=== PATIENT | male | born 1965 | race Caucasian/White ===

== ENCOUNTER 2016-07-01 16:23 | Inpatient (IN) | payer BC ==
[~2016-07-01] VITALS: Ht 180.3 cm; Wt 92.4 kg
[~2016-07-01 16:23] MED LIST: ALLO300T2 PO; ATEN-100 PO; ATOR20TA PO; FLUO20TA20 PO; HYDR-3580 PO; SOMA350T PO
[2016-07-01] MEDS ORDERED: CARI350T20 PO (16:48)
[2016-07-01] MEDS ORDERED: HYDR-3583 PO (16:48)
[2016-07-01 17:01] VITALS: BP 162/88; PULSE 89; RESP 16; TEMP 98.3; O2SAT 97
--- NOTE | 2016-07-01 17:35 | PD ---
HPI Chief Complaint: Pain: Acute or Chronic Time Seen by Provider: 17:32 Travel History International Travel<30 days: No Contact w/Intl Traveler<30days: No Traveled to known affect area: No History of Present Illness HPI 50-year-old male presents to the emergency department for evaluation of acute exacerbation of chronic low back pain. Patient states he has been having low back pain for 3 weeks. He states he saw Dr. Micky Ayala 3 weeks ago and he has surgery scheduled for , 2 days from now as long as he get his preop completed. However, he states for the past 2 days, he has been unable to move or get out of bed due to the severe pain. He is taking Lortab and Soma without relief. He states that he is urinating in bed. He is trying to use a urinal, but is urinating on himself. He states he has not had a bowel movement in 2 days. Patient does live alone. His sister is at bedside is concerned for him. He denies any fevers. Patient denies any saddle anesthesias. He states that he has to disc better compressing on the spinal cord. He is unsure what surgery he is having done. He also reports a history of gout. He takes no other medications. PFSH Past Medical History Arthritis: Yes Cancer: No Cardiovascular Problems: Yes (OR, STENTS X 3) High Cholesterol: Yes Chest Pain: Yes Diabetes: No Diminished Hearing: No Endocrine: No GERD: Yes Gout: Yes Genitourinary: No Hepatitis: No Hiatal Hernia: No Hypertension: Yes Immune Disorder: No Implanted Vascular Access Dvce: Yes Musculoskeletal: Yes (BACK, NECK, ARTHRITIS, OSTEOARTHRITIS RIGHT HIP) Neurologic: Yes (NUMBNESS & TINGLING TOP OF HEAD TO BASE OF CERVICAL SPINE ) Psychiatric: Yes (DEPRESSION,ANXIETY,ANGER) Reproductive: No Respiratory: Yes (SOB) Myocardial Infarction: Yes Thyroid Disease: No Past Surgical History Abdominal Surgery: No AICD: No Body Medical Devices: PLATE IN NECK, LEFT KNEE Cardiac Surgery: Yes (CARDIAC STENT X 3) Ear Surgery: No Endocrine Surgery: No Eye Surgery: No Genitourinary Surgery: No Joint Replacement: Yes (LEFT KNEE) Neurologic Surgery: Yes (CERVICAL SPINE ) Oral Surgery: No Pacemaker: No Thoracic Surgery: No Tonsillectomy: Yes Other Surgery: Yes Social History Alcohol Use: No Tobacco Use: No Substance Use: No Allergies-Medications (Allergen,Severity, Reaction): Coded Allergies: No Known Allergies (Unverified , 07/01/16) Reported Meds & Prescriptions Reported Meds & Active Scripts Active Reported Carisoprodol 350 Mg Tab 350 Mg PO QID PRN Hydrocodone-Acetaminophen 10-325 mg Tab 1 Tab PO Q6H PRN Review of Systems Except as stated in HPI: all other systems reviewed are Neg Physical Exam Narrative GENERAL: Well-nourished, well-developed male patient, afebrile. Patient smells of urine. SKIN: Focused skin assessment warm/dry. HEAD: Normocephalic. Atraumatic. EYES: No scleral icterus. No injection or drainage. NECK: Supple, trachea midline. No JVD or lymphadenopathy. CARDIOVASCULAR: Regular rate and rhythm without murmurs, gallops, or rubs. RESPIRATORY: Breath sounds equal bilaterally. No accessory muscle use. Lungs sounds are clear to auscultation. GASTROINTESTINAL: Abdomen soft, non-tender, nondistended. MUSCULOSKELETAL: No cyanosis, or edema. Patient has 5/5 bilateral lateral upper and lower extremity strength. BACK: No obvious deformity. No CVA tenderness. Patient has pain over midline lumbar spine. Data Data Last Documented VS Vital Signs Date Time Temp Pulse Resp B/P Pulse Ox O2 Delivery O2 Flow Rate FiO2 07/01/16 18:48 18 172/88 99 Room Air 07/01/16 17:01 98.3 89 Orders Creatine Kinase (Cpk) (07/01/16 17:28) Iv Access Insert/Monitor (07/01/16 17:28) Complete Blood Count With Diff (07/01/16 17:28) Comprehensive Metabolic Panel (07/01/16 17:28) Ondansetron Inj (Zofran Inj) (07/01/16 17:45) Morphine Inj (Morphine Inj) (07/01/16 17:45) Urinalysis - C+S If Indicated (07/01/16 18:10) Mri T Spine W/O Contrast (07/01/16 ) Mri L Spine W/O Contrast (07/01/16 ) Sodium Chlor 0.9% 1000 Ml Inj (Ns 1000 M (07/01/16 18:30) Labs Laboratory Tests Test 07/01/16 07/01/16 17:55 18:45 White Blood Count 16.0 TH/MM3 Red Blood Count 5.97 MIL/MM3 Hemoglobin 18.2 GM/DL Hematocrit 55.4 % Mean Corpuscular Volume 92.8 FL Mean Corpuscular Hemoglobin 30.4 PG Mean Corpuscular Hemoglobin 32.8 % Concent Red Cell Distribution Width 14.3 % Platelet Count 127 TH/MM3 Mean Platelet Volume 9.9 FL Neutrophils (%) (Auto) 77.4 % Lymphocytes (%) (Auto) 14.6 % Monocytes (%) (Auto) 7.7 % Eosinophils (%) (Auto) 0.1 % Basophils (%) (Auto) 0.2 % Neutrophils # (Auto) 12.4 TH/MM3 Lymphocytes # (Auto) 2.3 TH/MM3 Monocytes # (Auto) 1.2 TH/MM3 Eosinophils # (Auto) 0.0 TH/MM3 Basophils # (Auto) 0.0 TH/MM3 CBC Comment DIFF FINAL Differential Comment Sodium Level 137 MEQ/L Potassium Level 3.9 MEQ/L Chloride Level 101 MEQ/L Carbon Dioxide Level 27.3 MEQ/L Anion Gap 9 MEQ/L Blood Urea Nitrogen 23 MG/DL Creatinine 1.17 MG/DL Estimat Glomerular Filtration 66 ML/MIN Rate Random Glucose 112 MG/DL Calcium Level 8.1 MG/DL Total Bilirubin 0.5 MG/DL Aspartate Amino Transf 21 U/L (AST/SGOT) Alanine Aminotransferase 55 U/L (ALT/SGPT) Alkaline Phosphatase 76 U/L Total Creatine Kinase 122 U/L Total Protein 6.3 GM/DL Albumin 3.2 GM/DL Urine Color YELLOW Urine Turbidity HAZY Urine pH 6.5 Urine Specific [place] 1.029 Urine Protein 30 mg/dL Urine Glucose (UA) NEG mg/dL Urine Ketones TRACE mg/dL Urine Occult Blood SMALL Urine Nitrite NEG Urine Bilirubin NEG Urine Urobilinogen LESS THAN 2.0 MG/DL Urine Leukocyte Esterase NEG Urine RBC 9 /hpf Urine WBC 4 /hpf Urine Amorphous Sediment RARE Urine Bacteria RARE /hpf Urine Mucus FEW /lpf Microscopic Urinalysis Comment CULT NOT INDICATED MDM Medical Decision Making Medical Screen Exam Complete: Yes Emergency Medical Condition: Yes Medical Record Reviewed: Yes Differential Diagnosis Intractable back pain versus acute exacerbation of chronic back pain versus herniated disc versus spinal cord compression Narrative Course 50-year-old male presents to the emergency department for evaluation of severe back pain that he states started 2 days ago and he has been unable to get out of bed. The patient does smell of urine. The patient states totally is had back pain for 3 weeks and is scheduled to have surgery in 2 days if he can have his preop done. However, he cannot get out of bed to even do the preop. I discussed the case with my attending physician, Dr. Ballard. I will try to contact Dr. Micky Ayala. IV access obtained. CBC, CMP, CK are ordered and pending. Patient is given morphine 4 mg IV and Zofran 4 mg IV for pain. 1808 - I spoke to Dr. Micky Ayala who states the patient has refused conservative care. He was also supposed to get epidural anesthesia injections which he canceled and did not show up for. Dr. Ayala is unsure if surgery is even option at this point due to noncompliance. Dr. Ayala would labs and UA to be completed and MRI without contrast to be completed. Then he would like to be called back. CBC shows leukocytosis 16.0, hemoconcentration with hemoglobin/hematocrit of 18.2, 55.4. Platelets are decreased at 127. CMP shows no acute abnormality. CK is 122. UA shows no acute infection. MRI of the thoracic spine without contrast and MRI of the lumbar spine without contrast are pending. Dr. Ballard will follow up on results and contact Dr. Ayala with results. Christina Duke Jul 01, 2016 17:35
[2016-07-01] MEDS ORDERED: ONDANSETRON HCL 4 MG/2 ML VIAL IV PUSH ONE (17:45)
[2016-07-01] MEDS ORDERED: MORPHINE SULFATE 4 MG/ML INJ IV PUSH ONE (17:45)
[2016-07-01 18:14] LABS: AUTOMATED NEUTROPHIL # 12.4 TH/MM3 (1.8-7.7); BASOPHIL % 0.2 % (0.0-2.0); EOSINOPHIL % 0.1 % (0.0-4.0); HEMATOCRIT 55.4 % (39.0-51.0); HEMO FLAGS DIFF FINAL; LYMPH % 14.6 % (9.0-44.0); LYMPHOCYTE # 2.3 TH/MM3 (1.0-4.8); MEAN CELL VOLUME 92.8 FL (80.0-100.0); MEAN CORPUSCULAR HEMOGLOBIN 30.4 PG (27.0-34.0); MEAN CORPUSCULAR HGB CONC 32.8 % (32.0-36.0); MONO % 7.7 % (0.0-8.0); NEUT % 77.4 % (16.0-70.0); PLATELET COUNT 127 TH/MM3 (150-450); RED BLOOD COUNT 5.97 MIL/MM3 (4.50-5.90); RED CELL DISTRIBUTION WIDTH 14.3 % (11.6-17.2)
[2016-07-01] MEDS ORDERED: SODIUM CHLOR 0.9% 1000 ML INJ 1,000 ML IV ONE (18:30)
[2016-07-01 18:36] LABS: ALT (GPT) 55 U/L (12-78); ANION GAP 9 MEQ/L (5-15); AST (GOT) 21 U/L (15-37); BICARBONATE 27.3 MEQ/L (21.0-32.0); BLOOD UREA NITROGEN 23 MG/DL (7-18); CHLORIDE 101 MEQ/L (98-107); GLOMERULAR FILTRATION RATE 66 ML/MIN (>89); POTASSIUM 3.9 MEQ/L (3.5-5.1); SODIUM (NA) 137 MEQ/L (136-145)
[2016-07-01 18:38] LABS: ALKALINE PHOSPHATASE 76 U/L (45-117); CREATINE KINASE 122 U/L (39-308); TOTAL BILIRUBIN ADULT 0.5 MG/DL (0.2-1.0)
[2016-07-01 18:48] VITALS: BP 172/88; RESP 18; O2SAT 99
[2016-07-01 19:02] LABS: BACTERIA, URINE RARE /hpf; BLOOD, URINE SMALL (NEG); COMMENT (UR) CULT NOT INDICATED; CULTURE IF INDICATED CULT NOT INDICATED; GLUCOSE,URINE NEG (NEG); KETONE, URINE TRACE mg/dL (NEG); MUCUS URINE FEW /lpf (OCC); NITRITE,URINE NEG (NEG); PH, URINE 6.5 (5.0-8.5); URINE COLOR YELLOW (YELLW/STRAW)
[2016-07-01] MEDS ORDERED: HYDROmorphone HCL PF 1 MG/ML VIAL IV PUSH ONE ×2 (21:45→23:30)
[2016-07-01 22:25] VITALS: BP 159/101; PULSE 78; RESP 18; O2SAT 100
--- NOTE | 2016-07-01 23:02 | RADRPT ---
EXAM DATE/TIME: 07/01/2016 22:08 [facility] COMPARISON: No previous studies available for comparison. INDICATIONS : Pain. MEDICAL HISTORY : Hypertension. SURGICAL HISTORY : Fusion, cervical. ENCOUNTER: Initial ACUITY: 2 day PAIN SCORE: 5/10 LOCATION: back TECHNIQUE: Multiplanar multisequence MRI of the thoracic spine was performed. FINDINGS: VERTEBRA: Normal vertebral body height. Mild discogenic edema is noted in the endplates at C5-6 and C6-7 levels . DISCS: There are degenerative disc changes with desiccation and mild spurring. Anterior extradural defects a re noted on the sagittal images at T5-6, T6-7, T9-10 and T10-11 levels as well as T11-T12. ALIGNMENT: Normal. CORD: Normal position and configuration. T1-T2: The thecal sac has a normal diameter. No evidence of disc bulge or protrusion. T2-T3: The thecal sac has a normal diameter. No evidence of disc bulge or protrusion. T3-T4: The thecal sac has a normal diameter. No evidence of disc bulge or protrusion. T4-T5: The thecal sac has a normal diameter. No evidence of disc bulge or protrusion. T5-T6: Annular disc bulge with mild mass effect on the anterior thecal sac. This meets the cord with no defi nite mass effect. T6-T7: There is a moderate size right parasagittal protrusion with mass effect on the right side of the cord and no definite abnormal signal. The protrusion measures 8 mm across the base and a 3-[address] AP diameter. T7-T8: There is a mild annular disc bulge with no mass effect upon the cord. T8-T9: There is a mild disc bulge with no mass effect upon the cord. T9-T10: Broad-based moderate protrusion with flattening of the anterior cord no abnormal signal. T10-T11: Broad-based protrusion with no mass effect on the cord. T11-T12: Small right parasagittal protrusion with no mass effect on the cord. T12-L1: The thecal sac has a normal diameter. No evidence of disc bulge or protrusion. CONCLUSION: 1. Moderate-sized broad-based protrusion at the T9 to 10 level with flattening of the anterior cord. 2. Moderate size right parasagittal protrusion at the T6-7 level with mass effect on the right side o f the cord. 3. Mild broad-based protrusion at the T10-11 level with no mass effect upon the cord. 4. Small right parasagittal protrusion at the T11-12 level with no mass effect upon the cord. Hans Moeller MD on July 01, 2016 at 22:55 Board Certified Radiologist. This report was verified electronically.
--- NOTE | 2016-07-01 23:05 | RADRPT ---
EXAM DATE/TIME: 07/01/2016 22:08 [facility] COMPARISON: No previous studies available for comparison. INDICATIONS : Lower back pain. MEDICAL HISTORY : Hypertension. SURGICAL HISTORY : Fusion, cervical. Hip. ENCOUNTER: Initial ACUITY: 2 day PAIN SCORE: 5/10 LOCATION: back TECHNIQUE: Multiplanar multisequence MRI of the lumbar spine was performed without contrast. FINDINGS: The most caudal appearing lumbar vertebra is numbered as L5. VERTEBRAE: There is an old fracture deformity of the L2 vertebral body with invagination of the superior endplat e and no marrow edema. The other vertebral bodies are preserved in height. There is discogenic edema in the endplates at the L4-5 level. DISCS: Egenerative disc changes present with disc space narrowing and desiccation. CONUS: Normal level and configuration. T12-L1: There is a mild annular disc bulge with mild flattening of the anterior thecal sac and no focal protr usion. L1-L2: There is a mild annular disc bulge with mild flattening of the anterior thecal sac and no focal protr usion. L2-L3: There is a mild annular disc bulge with mild flattening of the anterior thecal sac and no focal protr usion. L3-L4: There is a mild annular disc bulge with mild flattening of the anterior thecal sac and no focal protr usion. There is mild central canal stenosis. There are degenerative changes involving the facets. L4-L5: There is an annular disc bulge with flattening of the anterior thecal sac and narrowing of the neural foramina bilaterally. There are degenerative changes involving the facet joints with hypertrophy of ligamentum flavum and moderate to severe central canal stenosis. L5-S1: Annular disc bulge with mild flattening of the anterior thecal sac and no focal protrusion. There are degenerative changes involving facets. CONCLUSION: 1. Moderate to severe central canal stenosis at the L4-5 level secondary to disc bulge and degenerati ve change involving the facets. 2. Mild central canal stenosis at the L3-4 level secondary to disc bulge and degenerative change invo lving the facets. 3. Old fracture deformity of the L2 vertebral body with invagination of the superior endplate and no marrow edema. Hans Moeller MD on July 01, 2016 at 23:01 Board Certified Radiologist. This report was verified electronically.
--- NOTE | 2016-07-01 23:26 | PD ---
Data Data Last Documented VS Vital Signs Date Time Temp Pulse Resp B/P Pulse Ox O2 Delivery O2 Flow Rate FiO2 07/01/16 22:25 78 18 159/101 100 Room Air 07/01/16 17:01 98.3 Orders Creatine Kinase (Cpk) (07/01/16 17:28) Iv Access Insert/Monitor (07/01/16 17:28) Complete Blood Count With Diff (07/01/16 17:28) Comprehensive Metabolic Panel (07/01/16 17:28) Ondansetron Inj (Zofran Inj) (07/01/16 17:45) Morphine Inj (Morphine Inj) (07/01/16 17:45) Urinalysis - C+S If Indicated (07/01/16 18:10) Mri T Spine W/O Contrast (07/01/16 ) Mri L Spine W/O Contrast (07/01/16 ) Sodium Chlor 0.9% 1000 Ml Inj (Ns 1000 M (07/01/16 18:30) Hydromorphone Pf Inj (Dilaudid Pf Inj) (07/01/16 21:45) Blood Culture (07/01/16 22:28) Hydromorphone Pf Inj (Dilaudid Pf Inj) (07/01/16 23:30) Labs Laboratory Tests Test 07/01/16 07/01/16 17:55 18:45 White Blood Count 16.0 TH/MM3 Red Blood Count 5.97 MIL/MM3 Hemoglobin 18.2 GM/DL Hematocrit 55.4 % Mean Corpuscular Volume 92.8 FL Mean Corpuscular Hemoglobin 30.4 PG Mean Corpuscular Hemoglobin 32.8 % Concent Red Cell Distribution Width 14.3 % Platelet Count 127 TH/MM3 Mean Platelet Volume 9.9 FL Neutrophils (%) (Auto) 77.4 % Lymphocytes (%) (Auto) 14.6 % Monocytes (%) (Auto) 7.7 % Eosinophils (%) (Auto) 0.1 % Basophils (%) (Auto) 0.2 % Neutrophils # (Auto) 12.4 TH/MM3 Lymphocytes # (Auto) 2.3 TH/MM3 Monocytes # (Auto) 1.2 TH/MM3 Eosinophils # (Auto) 0.0 TH/MM3 Basophils # (Auto) 0.0 TH/MM3 CBC Comment DIFF FINAL Differential Comment Sodium Level 137 MEQ/L Potassium Level 3.9 MEQ/L Chloride Level 101 MEQ/L Carbon Dioxide Level 27.3 MEQ/L Anion Gap 9 MEQ/L Blood Urea Nitrogen 23 MG/DL Creatinine 1.17 MG/DL Estimat Glomerular Filtration 66 ML/MIN Rate Random Glucose 112 MG/DL Calcium Level 8.1 MG/DL Total Bilirubin 0.5 MG/DL Aspartate Amino Transf 21 U/L (AST/SGOT) Alanine Aminotransferase 55 U/L (ALT/SGPT) Alkaline Phosphatase 76 U/L Total Creatine Kinase 122 U/L Total Protein 6.3 GM/DL Albumin 3.2 GM/DL Urine Color YELLOW Urine Turbidity HAZY Urine pH 6.5 Urine Specific [place] 1.029 Urine Protein 30 mg/dL Urine Glucose (UA) NEG mg/dL Urine Ketones TRACE mg/dL Urine Occult Blood SMALL Urine Nitrite NEG Urine Bilirubin NEG Urine Urobilinogen LESS THAN 2.0 MG/DL Urine Leukocyte Esterase NEG Urine RBC 9 /hpf Urine WBC 4 /hpf Urine Amorphous Sediment RARE Urine Bacteria RARE /hpf Urine Mucus FEW /lpf Microscopic Urinalysis Comment CULT NOT INDICATED MDM Supervised Visit with [facility]: Yes Narrative Course I, Dr. Ballard, have reviewed the advance practice practitioner's documentation and am in agreement, met with the patient face to face, made the diagnosis, and the medical decision making was done by me. See her note for further details. Briefly this is a 50-year-old male who presents by ambulance for evaluation of severe mid and lower back pain. The patient has been followed by orthopedic surgeon Dr. Micky Ayala and is scheduled for surgery for this which is in 2 days. The patient has been in so much pain over the last 2 days that he has not been able to get out of bed. Pain is severe, constant, worse with movement. The patient had MRIs done as an outpatient on 05/26/16 which show severe spinal stenosis and bilateral foraminal narrowing at L4/L5, eccentric left disc protrusion at L5/S1, mild spinal stenosis at L3/L4, scattered degenerative changes are at the remainder of the lumbar spine. Patient denies urinary incontinence, however he has been urinating on himself because he has been unable to stand up to actually go to the restroom. No fevers or chills. No recent trauma. On physical exam the patient is very pleasant, however he is uncomfortable because of severe lower back pain. He has normal range of motion in all joints and extremities. There is significant midline lumbar spine and thoracic spine tenderness without step-offs. No saddle anesthesia. Great toe extension present bilaterally. Vital signs show heart rate 89, blood pressure 162 2/88, pulse ox 97% on room air, oral temp of 98.3F. CBC shows WBC 16, hemoglobin 18.2, hematocrit 55, platelets 127, neutrophils 77.4%. CMP is unremarkable. MRI T-spine: CONCLUSION: 1. Moderate-sized broad-based protrusion at the T9 to 10 level with flattening of the anterior cord. 2. Moderate size right parasagittal protrusion at the T6-7 level with mass effect on the right side of the cord. 3. Mild broad-based protrusion at the T10-11 level with no mass effect upon the cord. 4. Small right parasagittal protrusion at the T11-12 level with no mass effect upon the cord. MRI L-spine: CONCLUSION: 1. Moderate to severe central canal stenosis at the L4-5 level secondary to disc bulge and degenerative change involving the facets. 2. Mild central canal stenosis at the L3-4 level secondary to disc bulge and degenerative change involving the facets. 3. Old fracture deformity of the L2 vertebral body with invagination of the superior endplate and no marrow edema. I spoke with Dr. Micky Ayala prior to MRIs. Patient will be admitted to the medical service and he will see the patient in consultation in the morning. The patient was made aware of all findings and plan for admission. He is feeling a lot better after receiving IV Dilaudid. Case discussed with hospitalist Dr. Rogers who will admit the patient to her service. Diagnosis Primary Impression: Spinal stenosis Qualified Code: M48.00 - Spinal stenosis, unspecified spinal region Additional Impression: Severe back pain Admitting Information Admitting Physician Requests: Admit José Miguel Ballard MD Jul 01, 2016 23:26
[2016-07-01] MEDS ORDERED: NALOXONE HCL 0.4 MG/ML AMP IV PRN (23:45)
[2016-07-01] MEDS ORDERED: ONDANSETRON HCL 4 MG/2 ML VIAL IVP PRN (23:45)
[2016-07-01] MEDS ORDERED: HYDROmorphone HCL PF 1 MG/ML VIAL IV PUSH PRN (23:45)
[2016-07-01] MEDS ORDERED: SODIUM CHLORIDE 0.9% FLUSH 10 ML FLUSH IV FLUSH PRN (23:45)
[2016-07-02] VITALS (10 sets, daily range): BP systolic 150–184; BP diastolic 80–118; PULSE 70–94; RESP 14–22; TEMP 95–99.1; O2SAT 94–97
[2016-07-02] MEDS: CYCLOBENZAPRINE HCL 10 MG TAB PO PRN ×3 (00:46→20:52)
[2016-07-02] MEDS: SODIUM CHLOR 0.9% 1000 ML INJ 1,000 ML IV SCH ×3 (01:13→22:48)
--- NOTE | 2016-07-02 01:23 | HHI.HP ---
[facility] Service [facility] Primary Care Physician Jens Valentine MD Admission Diagnosis spinal stenosis, severe back pain Diagnoses: Travel History International Travel<30 Days: No Contact w/Intl Traveler <30 Da: No Traveled to Known Affected Are: No Past Family Social History Allergies: Coded Allergies: No Known Allergies (Unverified , 07/01/16) Physical Exam Vital Signs Vital Signs Date Time Temp Pulse Resp B/P Pulse Ox O2 Delivery O2 Flow Rate FiO2 07/02/16 00:42 18 07/01/16 22:25 78 18 159/101 100 Room Air 07/01/16 18:48 18 172/88 99 Room Air 07/01/16 18:47 18 07/01/16 17:01 98.3 89 16 162/88 97 Room Air Physical Exam GENERAL: This is a well-nourished, well-developed patient, in no apparent distress. SKIN: No rashes, ecchymoses or lesions. Cool and dry. HEAD: Atraumatic. Normocephalic. No temporal or scalp tenderness. EYES: Pupils equal round and reactive. Extraocular motions intact. No scleral icterus. No injection or drainage. ENT: Nose without bleeding, purulent drainage or septal hematoma. Throat without erythema, tonsillar hypertrophy or exudate. Uvula midline. Airway patent. NECK: Trachea midline. No JVD or lymphadenopathy. Supple, nontender, no meningeal signs. CARDIOVASCULAR: Regular rate and rhythm without murmurs, gallops, or rubs. RESPIRATORY: Clear to auscultation. Breath sounds equal bilaterally. No wheezes , rales, or rhonchi. GASTROINTESTINAL: Abdomen soft, non-tender, nondistended. No hepato-splenomegaly , or palpable masses. No guarding. MUSCULOSKELETAL: Extremities without clubbing, cyanosis, or edema. No joint tenderness, effusion, or edema noted. No calf tenderness. Negative Homans sign bilaterally. NEUROLOGICAL: Awake and alert. Cranial nerves II through XII intact. Motor and sensory grossly within normal limits. Five out of 5 muscle strength in all muscle groups. Normal speech. Laboratory Laboratory Tests Test 4/11/17 4/11/17 17:55 18:45 White Blood Count 16.0 Red Blood Count 5.97 Hemoglobin 18.2 Hematocrit 55.4 Mean Corpuscular Volume 92.8 Mean Corpuscular Hemoglobin 30.4 Mean Corpuscular Hemoglobin 32.8 Concent Red Cell Distribution Width 14.3 Platelet Count 127 Mean Platelet Volume 9.9 Neutrophils (%) (Auto) 77.4 Lymphocytes (%) (Auto) 14.6 Monocytes (%) (Auto) 7.7 Eosinophils (%) (Auto) 0.1 Basophils (%) (Auto) 0.2 Neutrophils # (Auto) 12.4 Lymphocytes # (Auto) 2.3 Monocytes # (Auto) 1.2 Eosinophils # (Auto) 0.0 Basophils # (Auto) 0.0 CBC Comment DIFF FINAL Differential Comment Sodium Level 137 Potassium Level 3.9 Chloride Level 101 Carbon Dioxide Level 27.3 Anion Gap 9 Blood Urea Nitrogen 23 Creatinine 1.17 Estimat Glomerular Filtration 66 Rate Random Glucose 112 Calcium Level 8.1 Total Bilirubin 0.5 Aspartate Amino Transf 21 (AST/SGOT) Alanine Aminotransferase 55 (ALT/SGPT) Alkaline Phosphatase 76 Total Creatine Kinase 122 Total Protein 6.3 Albumin 3.2 Urine Color YELLOW Urine Turbidity HAZY Urine pH 6.5 Urine Specific [place] 1.029 Urine Protein 30 Urine Glucose (UA) NEG Urine Ketones TRACE Urine Occult Blood SMALL Urine Nitrite NEG Urine Bilirubin NEG Urine Urobilinogen LESS THAN 2.0 Urine Leukocyte Esterase NEG Urine RBC 9 Urine WBC 4 Urine Amorphous Sediment RARE Urine Bacteria RARE Urine Mucus FEW Microscopic Urinalysis Comment CULT NOT INDICATED Date/Time Procedure Status Source Growth 07/01/16 23:05 Aerobic Blood Culture Received Blood Peripheral Pending 07/01/16 23:05 Anaerobic Blood Culture Received Blood Peripheral Pending Result Diagram: 07/01/16 1755 07/01/16 1755 Eduardo Rogers MD Jul 02, 2016 01:23
--- NOTE | 2016-07-02 01:29 | HHI.HP ---
HPI Service [facility] Primary Care Physician Jens Valentine MD Admission Diagnosis spinal stenosis, severe back pain Diagnoses: Chief Complaint: Low back pain, right lower extremity pain and numbness Travel History International Travel<30 Days: No Contact w/Intl Traveler <30 Da: No Traveled to Known Affected Are: No History of Present Illness History from patient, ER physician to medication, and review of medical records. Patient reported that he came to the hospital because he was having severe low back pain with severe right lower extremity numbness and pain which actually debilitate him from movement. He stated he was almost bedbound for the past 3 or 4 days. He states even when he got up to use bathroom, he was in excruciating pain that he thought and in his lab would have been the better choice. He reports he has lumbar stenosis for which he had MRIs and workup done as an outpatient with Dr. Micky Doherty. He was told he would need surgery and this was planned for . He states however in the past few days, the pain was suddenly worse. Denies any recent falls. Patient denies any recent fevers/nausea/vomiting/diarrhea. Denies any urinary incontinence or bowel incontinence. And denies any sensory level deficits. He states the sore lack was numb and painful. His main complaint is that of pain. Denies any blood in his stool or in his urine. As per ER report, patient was pretty much debilitated and almost bedbound the point that when he initially came into the hospital, he was having foul- smelling urine and is pretty much soaked in urine. However patient denies incontinence. He states he was pretty much soaked in urine because he was just not able to move because of the pain. Review of Systems Except as stated in HPI: all other systems reviewed are Neg Past Family Social History Past Medical History Hypertension CADstatus post cardiac stents 3 in 2009 Hyperlipidemia Gout Past Surgical History Multiple orthopedic surgeries. Coronary angiogram and stenting 3. Right hip surgery. Multiple back and neck surgeries. Left knee surgery. Reported Medications Patient's medications listed on EMRreviewed. Allergies: Coded Allergies: No Known Allergies (Unverified , 07/01/16) Family History Denies any family history of any medical condition. Social History Denies smoking/alcohol abuse/drug abuse. Physical Exam Vital Signs Vital Signs Date Time Temp Pulse Resp B/P Pulse Ox O2 Delivery O2 Flow Rate FiO2 07/02/16 00:42 18 07/01/16 22:25 78 18 159/101 100 Room Air 07/01/16 18:48 18 172/88 99 Room Air 07/01/16 18:47 18 07/01/16 17:01 98.3 89 16 162/88 97 Room Air Physical Exam GENERAL: This is a well-nourished, well-developed patient, in no apparent distress. Diaphoretic. Looks to be in pain. SKIN: No rashes, ecchymoses or lesions. Cool and dry. Diaphoretic HEAD: Atraumatic. Normocephalic. No temporal or scalp tenderness. EYES: No scleral icterus. No injection or drainage. ENT: Nose without bleeding, purulent drainage or septal hematoma. Airway patent. NECK: Trachea midline. No JVD. Supple, nontender, no meningeal signs. CARDIOVASCULAR: Regular rate and rhythm without murmurs, gallops, or rubs. RESPIRATORY: Clear to auscultation. Breath sounds equal bilaterally. No wheezes , rales, or rhonchi. Musculoskeletal: No calf asymmetry or edema.. No tenderness. NEUROLOGICAL: Awake and alert. Motor and sensory grossly within normal limits. Normal speech. Laboratory Laboratory Tests Test 07/01/16 07/01/16 17:55 18:45 White Blood Count 16.0 Red Blood Count 5.97 Hemoglobin 18.2 Hematocrit 55.4 Mean Corpuscular Volume 92.8 Mean Corpuscular Hemoglobin 30.4 Mean Corpuscular Hemoglobin 32.8 Concent Red Cell Distribution Width 14.3 Platelet Count 127 Mean Platelet Volume 9.9 Neutrophils (%) (Auto) 77.4 Lymphocytes (%) (Auto) 14.6 Monocytes (%) (Auto) 7.7 Eosinophils (%) (Auto) 0.1 Basophils (%) (Auto) 0.2 Neutrophils # (Auto) 12.4 Lymphocytes # (Auto) 2.3 Monocytes # (Auto) 1.2 Eosinophils # (Auto) 0.0 Basophils # (Auto) 0.0 CBC Comment DIFF FINAL Differential Comment Sodium Level 137 Potassium Level 3.9 Chloride Level 101 Carbon Dioxide Level 27.3 Anion Gap 9 Blood Urea Nitrogen 23 Creatinine 1.17 Estimat Glomerular Filtration 66 Rate Random Glucose 112 Calcium Level 8.1 Total Bilirubin 0.5 Aspartate Amino Transf 21 (AST/SGOT) Alanine Aminotransferase 55 (ALT/SGPT) Alkaline Phosphatase 76 Total Creatine Kinase 122 Total Protein 6.3 Albumin 3.2 Urine Color YELLOW Urine Turbidity HAZY Urine pH 6.5 Urine Specific [place] 1.029 Urine Protein 30 Urine Glucose (UA) NEG Urine Ketones TRACE Urine Occult Blood SMALL Urine Nitrite NEG Urine Bilirubin NEG Urine Urobilinogen LESS THAN 2.0 Urine Leukocyte Esterase NEG Urine RBC 9 Urine WBC 4 Urine Amorphous Sediment RARE Urine Bacteria RARE Urine Mucus FEW Microscopic Urinalysis Comment CULT NOT INDICATED Date/Time Procedure Status Source Growth 07/01/16 23:05 Aerobic Blood Culture Received Blood Peripheral Pending 07/01/16 23:05 Anaerobic Blood Culture Received Blood Peripheral Pending Result Diagram: 07/01/16 1755 07/01/16 1755 Imaging Last 48 hours Impressions Thoracic Spine MRI 07/01/16 0000 Signed Impressions: Service Date/Time: Friday, July 01, 2016 22:08 - CONCLUSION: 1. Moderate-sized broad-based protrusion at the T9 to 10 level with flattening of the anterior cord. 2. Moderate size right parasagittal protrusion at the T6-7 level with mass effect on the right side of the cord. 3. Mild broad-based protrusion at the T10-11 level with no mass effect upon the cord. 4. Small right parasagittal protrusion at the T11-12 level with no mass effect upon the cord. Hans Moeller MD Lumbar Spine MRI 07/01/16 0000 Signed Impressions: Service Date/Time: Friday, July 01, 2016 22:08 - CONCLUSION: 1. Moderate to severe central canal stenosis at the L4-5 level secondary to disc bulge and degenerative change involving the facets. 2. Mild central canal stenosis at the L3-4 level secondary to disc bulge and degenerative change involving the facets. 3. Old fracture deformity of the L2 vertebral body with invagination of the superior endplate and no marrow edema. Hans Moeller MD Assessment and Plan Problem List: (1) Spinal stenosis ICD Code: M48.00 Status: Acute (2) Severe back pain ICD Code: M54.9 Status: Acute Assessment and Plan Impression: Acute on chronic worsening lower back painsecondary to L4-L5 stenosiswith possible impending cord compression Leukocytosis with left shift- likely due to dehydration/ not eating or drinking , mostly in bed 1. Moderate-sized broad-based protrusion at the T9 to 10 level with flattening of the anterior cord. 2. Moderate size right parasagittal protrusion at the T6-7 level with mass effect on the right side of the cord. 3. Mild broad-based protrusion at the T10-11 level with no mass effect upon the cord. 4. Small right parasagittal protrusion at the T11-12 level with no mass effect upon the cord. 1. Moderate to severe central canal stenosis at the L4-5 level secondary to disc bulge and degenerative change involving the facets. 2. Mild central canal stenosis at the L3-4 level secondary to disc bulge and degenerative change involving the facets. 3. Old fracture deformity of the L2 vertebral body with invagination of the superior endplate and no marrow edema. Hypertension CADstatus post cardiac stents 3 in 2009 Hyperlipidemia Gout Plan : pain control start decadron 10mg one does now and 4mg iv q6hrs ortho was consulted - possible surgical intervention will follow cbc iv hydration resume home meds dvt prophylaxis with SCD for now- will need chemical prophylaxis post op GI prophylaxis on pantoprazole Discussed Condition With patient, ER Physician Certification 2 Midnight Certification Type: Admission for Inpatient Services Order for Inpatient Services The services are ordered in accordance with Medicare regulations or non- Medicare payer requirements, as applicable. In the case of services not specified as inpatient-only, they are appropriately provided as inpatient services in accordance with the 2-midnight benchmark. Estimated LOS (days): 3 days is the estimated time the patient will need to remain in the hospital, assuming treatment plan goals are met and no additional complications. Post-Hospital Plan: Not yet determined Problem Qualifiers (1) Spinal stenosis: Qualified Code: M48.00 - Spinal stenosis, unspecified spinal region Eduardo Rogers MD Jul 02, 2016 01:28
[2016-07-02] MEDS ORDERED: DEXAMETHASONE SOD PHOS 4 MG/ML VIAL IV ONE (01:30)
[2016-07-02] MEDS: HYDROmorphone HCL PF 1 MG/ML VIAL IV PUSH PRN ×10 (01:38→22:48)
[2016-07-02] MEDS: DEXAMETHASONE SOD PHOS 4 MG/ML VIAL IV PUSH SCH ×4 (05:38→23:17)
[2016-07-02] MEDS: PANTOPRAZOLE SOD 40 MG DELAYED RELEASE TAB PO SCH (08:07)
[2016-07-02] MEDS: SODIUM CHLORIDE 0.9% FLUSH 10 ML FLUSH IV FLUSH SCH ×2 (08:08→20:53)
[2016-07-02 10:10] LABS: AUTOMATED NEUTROPHIL # 9.6 TH/MM3 (1.8-7.7); BASOPHIL % 0.1 % (0.0-2.0); HEMATOCRIT 56.9 % (39.0-51.0); HEMO FLAGS DIFF FINAL; LYMPH % 5.6 % (9.0-44.0); LYMPHOCYTE # 0.6 TH/MM3 (1.0-4.8); MEAN CELL VOLUME 93.9 FL (80.0-100.0); MEAN CORPUSCULAR HGB CONC 34.1 % (32.0-36.0); MONO % 2.9 % (0.0-8.0); NEUT % 91.4 % (16.0-70.0); PLATELET COUNT 132 TH/MM3 (150-450); RED BLOOD COUNT 6.06 MIL/MM3 (4.50-5.90); RED CELL DISTRIBUTION WIDTH 14.8 % (11.6-17.2); WHITE BLOOD COUNT 10.5 TH/MM3 (4.0-11.0)
[2016-07-02 10:14] LABS: PROTHROMBIN TIME - PATIENT 11.1 SEC (9.8-11.6)
[2016-07-02 10:34] LABS: POTASSIUM 4.6 MEQ/L (3.5-5.1)
[2016-07-02] MEDS ORDERED: ENALAPRILAT 1.25 MG/ML VIAL IV PUSH PRN (11:00)
[2016-07-02] MEDS: cloNIDine HCL 0.2 MG TAB PO PRN (11:03)
[2016-07-02] MEDS ORDERED: MAGNESIUM HYDROXIDE SUSP 30 ML CUP PO PRN (12:30)
--- NOTE | 2016-07-02 12:31 | HHI.PR ---
Subjective Remarks Follow-up spinal stenosis 07/02/16-patient seen and examined, plan for surgical repair by orthopedic surgery on 07/03/16. BP elevated. Pain currently controlled. Objective Vitals Vital Signs Date Time Temp Pulse Resp B/P Pulse Ox O2 Delivery O2 Flow Rate FiO2 07/02/16 09:00 99.1 80 14 184/106 96 07/02/16 08:00 98.7 78 18 179/102 94 Automatic Cuff 07/02/16 04:11 18 07/02/16 04:00 98.1 79 20 165/97 94 07/02/16 03:00 70 07/02/16 02:10 95.0 77 16 170/90 95 07/02/16 01:45 82 16 164/80 97 Room Air 07/02/16 00:42 18 07/01/16 22:25 78 18 159/101 100 Room Air 07/01/16 18:48 18 172/88 99 Room Air 07/01/16 18:47 18 07/01/16 17:01 98.3 89 16 162/88 97 Room Air I/O 07/01/16 07/01/16 07/01/16 07/02/16 07/02/16 07/02/16 07:00 15:00 23:00 07:00 15:00 23:00 Intake Total 480 ml Output Total 400 ml Balance 80 ml Intake Oral 480 ml Output Urine Total 400 ml # Bowel Movements 0 Result Diagram: 07/02/16 0851 07/02/16 0851 Imaging Last Impressions Thoracic Spine MRI 07/01/16 0000 Signed Impressions: Service Date/Time: Friday, July 01, 2016 22:08 - CONCLUSION: 1. Moderate-sized broad-based protrusion at the T9 to 10 level with flattening of the anterior cord. 2. Moderate size right parasagittal protrusion at the T6-7 level with mass effect on the right side of the cord. 3. Mild broad-based protrusion at the T10-11 level with no mass effect upon the cord. 4. Small right parasagittal protrusion at the T11-12 level with no mass effect upon the cord. Hans Moeller MD Lumbar Spine MRI 07/01/16 0000 Signed Impressions: Service Date/Time: Friday, July 01, 2016 22:08 - CONCLUSION: 1. Moderate to severe central canal stenosis at the L4-5 level secondary to disc bulge and degenerative change involving the facets. 2. Mild central canal stenosis at the L3-4 level secondary to disc bulge and degenerative change involving the facets. 3. Old fracture deformity of the L2 vertebral body with invagination of the superior endplate and no marrow edema. Hans Moeller MD Objective Remarks GENERAL: NAD SKIN: Warm and dry. HEAD: Normocephalic. EYES: No scleral icterus. No injection or drainage. NECK: Supple, trachea midline. No JVD or lymphadenopathy. CARDIOVASCULAR: Regular rate and rhythm without murmurs, gallops, or rubs. RESPIRATORY: Breath sounds equal bilaterally. No accessory muscle use. GASTROINTESTINAL: Abdomen soft, non-tender, nondistended. MUSCULOSKELETAL: No cyanosis, or edema. BACK: + tender without obvious deformity. No CVA tenderness. A/P Problem List: (1) Spinal stenosis ICD Code: M48.00 Status: Acute (2) Severe back pain ICD Code: M54.9 Status: Acute Assessment and Plan 50-year-old man with Spinal stenosis L4-L5: Orthopedic surgery consulted for possible laminectomy . Continue with current treatment including Decadron, Protonix, Pain management/analgesic when necessary. PT consult to treat Hypertension: Labile BP, resume atenolol 50 mg daily. Clonidine and Vasotec when necessary Hemoconcentration: Secondary to dehydration, continue with IV fluid hydration and monitor H&H History of hyperlipidemia, gout: Check lipid profile DVT prophylaxis with SCDs for now- will need chemical prophylaxis post op GI prophylaxis on pantoprazole Problem Qualifiers (1) Spinal stenosis: Qualified Code: M48.00 - Spinal stenosis, unspecified spinal region Carlo Dang MD Jul 02, 2016 12:31
--- NOTE | 2016-07-02 13:10 | MB ---
cc: AGNIESZKA SARGENT M.D., RYAN R. M.D. OUNG, TWETHIDA MD DATE OF CONSULTATION 07/02/2016 CHIEF COMPLAINT Severe back pain, right greater left leg pain. HISTORY OF PRESENT ILLNESS This is a 50-year-old male who presents with the following history. The patient has a history of L3-4 moderate degree of spinal stenosis and L4-5 moderately severe degree of spinal stenosis with a grade one spondylolisthesis and a bulging disk at both L3-4 and L4-5. The patient was attempting conservative care which he failed. Originally he was treated with oral steroids which were helpful to home. He was scheduled for epidural steroid injections. The patient states he canceled the epidural steroid injections because he had good relief with the oral steroids. Over the past three to four days, the patient has developed severe pain with limited ability to get in and out of the head. He had to be taken by ambulance to the hospital late yesterday afternoon. Repeat images were taken of the MRI scan of the lumbar spine. These showed no significant change from the MRI scan taken in May 2016. MRI scan of the thoracic spine does show multiple levels of osteophyte disk complex, herniated pulposus, but no significant spinal cord pathology seen. The patient does have extensive thoracic, lumbar spine degenerative disease, osteoarthritis. On March 13, 2015, the patient underwent C4-5 posterior spinal fusion using DTRAX posterior fusion. On May 04, 2014, the patient want a C3-C5 ACDF with removal of the anterior spinal instrumentation from C5-C7. May 28, 2001, the patient underwent a C5-C7 ACDF. The patient underwent a right total hip arthroplasty January 22, 2015 and underwent a right foot big toe hallux rigidus correction with cheilectomy on December 05, 2014. The patient does have a history of gout. The patient also has had left knee surgery done many years ago by another orthopedic provider. PAST MEDICAL HISTORY, SOCIAL HISTORY, REVIEW OF SYSTEMS See accompanying records. PHYSICAL EXAMINATION Patient has spasm and tenderness in the lower lumbar spine area. Deep tendon reflexes were 0-1/4 bilateral patella and Achilles. Negative Babinski sign. Negative clonus sign. Motor was +5/5 bilaterally except for right ankle dorsiflexion that is 4.5/5. The patient has a good range of motion of the right hip. No provocative symptoms. He has a well anterior cervical spine incision with no significant symptoms and no significant spasm and tenderness noted up in that cervical spine area. IMPRESSION 1. L4-5 moderately severe spinal stenosis, grade 1 spondylolisthesis, bulging disk. 2. L3-4 moderate spinal stenosis, bulging disk. 3. Lumbar spine degenerative disc disease/osteoarthritis. 4. Right greater left lumbar radiculitis with right lower extremity weakness. PLAN If the patient does get medical clearance, I recommend that he undergo an L3-4, L4-5 bilateral decompressive hemilaminectomy, bilateral foraminotomy, bilateral partial facetectomy, decompression nerve roots, and possible diskectomy. I explained at length to the patient his back disorder, the proposed procedure and possible complications. These include back pain, leg pain, numbness, weakness, CSF leak, infection (requiring him to have further surgery). He states he understands and wishes to proceed ahead with the procedure. I did instruct the patient and the nursing staff that he needs to be taken to the shower today under the guidance of a nurses aide for him to bath and clean his body. MD ABIEL Owens/YVROSE /12:44 PM /12:56 PM
[2016-07-02] MEDS: DOCUSATE SODIUM 100 MG CAP PO SCH (20:48)
[2016-07-03] VITALS: BP 163/103; PULSE 70; RESP 18; TEMP 98.9; O2SAT 95
[2016-07-03] MEDS: HYDROmorphone HCL PF 1 MG/ML VIAL IV PUSH PRN ×4 (00:51→07:45)
[2016-07-03 04:00] VITALS: BP 167/112; PULSE 65; RESP 18; TEMP 98.1; O2SAT 95
[2016-07-03] MEDS: CYCLOBENZAPRINE HCL 10 MG TAB PO PRN (05:00)
[2016-07-03] MEDS: cloNIDine HCL 0.2 MG TAB PO PRN (05:00)
[2016-07-03] MEDS: DEXAMETHASONE SOD PHOS 4 MG/ML VIAL IV PUSH SCH ×2 (05:02→11:06)
[2016-07-03 06:29] VITALS: PULSE 83
[2016-07-03 08:00] VITALS: BP 149/91; PULSE 69; RESP 18; TEMP 97.9; O2SAT 97
[2016-07-03 08:31] VITALS: PULSE 74
[2016-07-03] MEDS: PANTOPRAZOLE SOD 40 MG DELAYED RELEASE TAB PO SCH (08:35)
[2016-07-03] MEDS: DOCUSATE SODIUM 100 MG CAP PO SCH (08:35)
[2016-07-03] MEDS: SODIUM CHLORIDE 0.9% FLUSH 10 ML FLUSH IV FLUSH SCH (08:57)
[2016-07-03] MEDS ORDERED: ATENOLOL 50 MG TAB PO SCH (09:00)
[2016-07-03] MEDS ORDERED: HYDROmorphone HCL PF 1 MG/ML VIAL IV PUSH PRN (11:00)
[2016-07-03] MEDS: SODIUM CHLOR 0.9% 1000 ML INJ 1,000 ML IV SCH (11:30)
--- NOTE | 2016-07-03 11:32 | HHI.PR ---
Subjective Remarks Follow-up spinal stenosis 07/02/16-patient seen and examined, plan for surgical repair by orthopedic surgery on 07/03/16. BP elevated. Pain currently controlled. 07/03/16-patient seen and examined; complains of back pain; afebrile, BP improving. Mother and sister in the room. NPO pending surgical intervention Objective Vitals Vital Signs Date Time Temp Pulse Resp B/P Pulse Ox O2 Delivery O2 Flow Rate FiO2 07/03/16 08:00 97.9 69 18 149/91 97 07/03/16 06:29 83 07/03/16 05:50 16 07/03/16 04:00 98.1 65 18 167/112 95 07/03/16 00:00 98.9 70 18 163/103 95 07/02/16 20:00 98.2 83 16 152/102 95 07/02/16 16:00 98.2 90 22 150/81 95 07/02/16 12:00 98.9 87 18 172/118 95 I/O 07/02/16 07/02/16 07/02/16 07/03/16 07/03/16 07/03/16 07:00 15:00 23:00 07:00 15:00 23:00 Intake Total 480 ml 1068 ml 480 ml 0 ml Output Total 400 ml 450 ml 350 ml 800 ml Balance 80 ml 618 ml 130 ml -800 ml Intake Oral 480 ml 600 ml 480 ml 0 ml IV Total 468 ml Output Urine Total 400 ml 450 ml 350 ml 800 ml # Bowel Movements 0 0 1 0 Result Diagram: 07/02/16 0851 07/02/16 0851 Objective Remarks GENERAL: NAD SKIN: Warm and dry. HEAD: Normocephalic. EYES: No scleral icterus. No injection or drainage. NECK: Supple, trachea midline. No JVD or lymphadenopathy. CARDIOVASCULAR: Regular rate and rhythm without murmurs, gallops, or rubs. RESPIRATORY: Breath sounds equal bilaterally. No accessory muscle use. GASTROINTESTINAL: Abdomen soft, non-tender, nondistended. MUSCULOSKELETAL: No cyanosis, or edema. BACK: + tender without obvious deformity. No CVA tenderness. A/P Problem List: (1) Spinal stenosis ICD Code: M48.00 Status: Acute (2) Severe back pain ICD Code: M54.9 Status: Acute Assessment and Plan 50-year-old man with Spinal stenosis L4-L5: Orthopedic surgery consulted for possible laminectomy today 07/03/16. Continue with current treatment including Decadron, Protonix, Pain management/analgesic when necessary. PT consult to treat Hypertension:On atenolol 50 mg daily. Clonidine and Vasotec when necessary Hemoconcentration: Secondary to dehydration, continue with IV fluid hydration and monitor H&H History of hyperlipidemia, gout: lipid profile profile pending DVT prophylaxis with SCDs for now- will need chemical prophylaxis post op GI prophylaxis on pantoprazole Problem Qualifiers (1) Spinal stenosis: Qualified Code: M48.00 - Spinal stenosis, unspecified spinal region Carlo Dang MD Jul 03, 2016 11:32
[2016-07-03] MEDS ORDERED: LACTATED RINGER'S 1000 ML INJ 3,000 ML IV ONE (12:00)
[2016-07-03] MEDS ORDERED: ePHEDrine/NS 25 MG/5 ML SYR IV ONE (12:00)
[2016-07-03] MEDS ORDERED: ONDANSETRON HCL 4 MG/2 ML VIAL IV PUSH ONE (12:00)
[2016-07-03] MEDS ORDERED: fentaNYL CITRATE 250 MCG/5 ML AMP IV ONE (12:00)
[2016-07-03] MEDS ORDERED: PROPOFOL 200 MG/20 ML AMP IV ONE ×2 (12:00)
[2016-07-03] MEDS ORDERED: MIDAZOLAM HCL 2 MG/2 ML VIAL IV ONE (12:00)
[2016-07-03] MEDS ORDERED: VANCOMYCIN HCL 1000 MG VIAL ONE (13:22)
[2016-07-03] MEDS ORDERED: BUPIVACAINE/EPINEPHRINE 0.25% 50 ML VIAL ONE (13:22)
[2016-07-03] MEDS ORDERED: ceFAZolin 2 GM PREMIX 50 ML ONE (13:22)
[2016-07-03] MEDS ORDERED: GENTAMICIN SULFATE 80 MG/2 ML VIAL ONE (13:22)
--- NOTE | 2016-07-03 14:39 | RADRPT ---
EXAM DATE/TIME: 07/03/2016 13:49 [facility] COMPARISON: No previous studies available for comparison. INDICATIONS : L3-L5 Laminectomy for level localization. MEDICAL HISTORY : Hypertension. SURGICAL HISTORY : Fusion, cervical. ENCOUNTER: Initial ACUITY: 1 day PAIN SCORE: Non-responsive. LOCATION: L-spine FINDINGS/ CONCLUSION: Two view lumbar spine demonstrates the L4-L5 vertebral bodies have been identified. Radiopaque marke rs overlie the L4 and L5 pedicles. Broderick Valdez MD on July 03, 2016 at 14:24 Board Certified Radiologist. This report was verified electronically.
[2016-07-03] MEDS ORDERED: DO NOT ADM ANY ANTICOAGULANT DRUGS PRN (15:15)
[2016-07-03] MEDS ORDERED: ACETAMINOPHEN/HYDROcodone 325 MG/10 MG TAB PO PRN ×2 (15:15)
[2016-07-03 16:30] VITALS: BP 145/84; PULSE 67; RESP 18; TEMP 98; O2SAT 96
[2016-07-03] MEDS ORDERED: PERI8.6T PO (16:39)
[2016-07-03] MEDS ORDERED: ATEN50TA PO (16:39)
--- NOTE | 2016-07-03 16:42 | HHI.DS ---
Discharge Summary Admission Date Jul 01, 2016 at 23:38 Discharge Date: Jul 03, 2016 Admitting Diagnosis spinal stenosis, severe back pain (1) Spinal stenosis ICD Code: M48.00 (2) Severe back pain ICD Code: M54.9 Procedures s/p post L3-L5 bilateral hemilaminectomy 07/03/16 Brief History - From Admission History from patient, ER physician to medication, and review of medical records. Patient reported that he came to the hospital because he was having severe low back pain with severe right lower extremity numbness and pain which actually debilitate him from movement. He stated he was almost bedbound for the past 3 or 4 days. He states even when he got up to use bathroom, he was in excruciating pain that he thought and in his lab would have been the better choice. He reports he has lumbar stenosis for which he had MRIs and workup done as an outpatient with Dr. Micky Doherty. He was told he would need surgery and this was planned for . He states however in the past few days, the pain was suddenly worse. Denies any recent falls. Patient denies any recent fevers/nausea/vomiting/diarrhea. Denies any urinary incontinence or bowel incontinence. And denies any sensory level deficits. He states the sore lack was numb and painful. His main complaint is that of pain. Denies any blood in his stool or in his urine. As per ER report, patient was pretty much debilitated and almost bedbound the point that when he initially came into the hospital, he was having foul- smelling urine and is pretty much soaked in urine. However patient denies incontinence. He states he was pretty much soaked in urine because he was just not able to move because of the pain. CBC/BMP: 07/02/16 0851 07/02/16 0851 Significant Findings Laboratory Tests Test 07/01/16 07/01/16 07/02/16 17:55 18:45 08:51 White Blood Count 16.0 TH/MM3 (4.0-11.0) Red Blood Count 5.97 MIL/MM3 6.06 MIL/MM3 (4.50-5.90) (4.50-5.90) Hemoglobin 18.2 GM/DL 19.4 GM/DL (13.0-17.0) (13.0-17.0) Hematocrit 55.4 % 56.9 % (39.0-51.0) (39.0-51.0) Platelet Count 127 TH/MM3 132 TH/MM3 (150-450) (150-450) Neutrophils (%) (Auto) 77.4 % 91.4 % (16.0-70.0) (16.0-70.0) Neutrophils # (Auto) 12.4 TH/MM3 9.6 TH/MM3 (1.8-7.7) (1.8-7.7) Monocytes # (Auto) 1.2 TH/MM3 (0-0.9) Blood Urea Nitrogen 23 MG/DL (7-18) 23 MG/DL (7-18) Estimat Glomerular Filtration 66 ML/MIN (>89) 64 ML/MIN (>89) Rate Random Glucose 112 MG/DL 127 MG/DL (74-106) (74-106) Calcium Level 8.1 MG/DL (8.5-10.1) Total Protein 6.3 GM/DL (6.4-8.2) Albumin 3.2 GM/DL (3.4-5.0) Urine Turbidity HAZY (CLEAR) Urine Protein 30 mg/dL (NEG-TRACE) Urine Ketones TRACE mg/dL (NEG) Urine Occult Blood SMALL (NEG) Urine RBC 9 /hpf (0-3) Urine Bacteria RARE /hpf (NONE) Urine Mucus FEW /lpf (OCC) Lymphocytes (%) (Auto) 5.6 % (9.0-44.0) Lymphocytes # (Auto) 0.6 TH/MM3 (1.0-4.8) Sodium Level 133 MEQ/L (136-145) Chloride Level 96 MEQ/L (98-107) Imaging Last Impressions Lumbar Spine X-Ray 07/03/16 0000 Signed Impressions: Service Date/Time: June 13:49 - CONCLUSION: Two view lumbar spine demonstrates the L4-L5 vertebral bodies have been identified. Radiopaque markers overlie the L4 and L5 pedicles. Broderick Valdez MD Thoracic Spine MRI 07/01/16 0000 Signed Impressions: Service Date/Time: Friday, July 01, 2016 22:08 - CONCLUSION: 1. Moderate-sized broad-based protrusion at the T9 to 10 level with flattening of the anterior cord. 2. Moderate size right parasagittal protrusion at the T6-7 level with mass effect on the right side of the cord. 3. Mild broad-based protrusion at the T10-11 level with no mass effect upon the cord. 4. Small right parasagittal protrusion at the T11-12 level with no mass effect upon the cord. Hans Moeller MD Lumbar Spine MRI 07/01/16 0000 Signed Impressions: Service Date/Time: Friday, July 01, 2016 22:08 - CONCLUSION: 1. Moderate to severe central canal stenosis at the L4-5 level secondary to disc bulge and degenerative change involving the facets. 2. Mild central canal stenosis at the L3-4 level secondary to disc bulge and degenerative change involving the facets. 3. Old fracture deformity of the L2 vertebral body with invagination of the superior endplate and no marrow edema. Hans Moeller MD PE at Discharge GENERAL: NAD SKIN: Warm and dry. HEAD: Normocephalic. EYES: No scleral icterus. No injection or drainage. NECK: Supple, trachea midline. No JVD or lymphadenopathy. CARDIOVASCULAR: Regular rate and rhythm without murmurs, gallops, or rubs. RESPIRATORY: Breath sounds equal bilaterally. No accessory muscle use. GASTROINTESTINAL: Abdomen soft, non-tender, nondistended. MUSCULOSKELETAL: No cyanosis, or edema. BACK: + tender without obvious deformity. No CVA tenderness. Hospital Course Patient was admitted secondary to L4-L5 stenosis for which orthopedic surgery was consulted and he underwent repair 07/03/16. Secondary to elevated BP, atenolol 50 mg was started with a chief complaint of improvement of BP. DVT prophylaxis was provided. Pt Condition on Discharge: Stable Discharge Disposition: Discharge Home Discharge Time: <= 30 minutes Discharge Instructions DIET: Follow Instructions for: Heart Healthy Diet Activities you can perform: Regular-No Restrictions Follow up Referrals: Appointment for Follow Up - Next Day with Micky Ayala MD PCP Follow-up - 1 Week New Medications: Sennosides-Docusate Sodium (Yael-Colace) 8.6-50 Mg Tab 1 TAB PO BID PRN Constipation #20 Ref 0 TAB Atenolol (Atenolol) 50 Mg Tab 50 MG PO DAILY Blood Pressure Management #30 Ref 3 TAB Continued Medications: Carisoprodol (Carisoprodol) 350 Mg Tab 350 MG PO QID PRN PAIN #0 Ref 0 TAB Hydrocodone-Acetaminophen (Hydrocodone-Acetaminophen) 10-325 mg Tab 1 TAB PO Q6H PRN PAIN Ref 0 TAB Carlo Dang MD Jul 03, 2016 16:42
--- NOTE | 2016-07-03 16:58 | HHI.PR ---
Addendum to Inpatient Note Addendum Reason: Additional Documentation Additional Information Patient underwent L3-L5 Bilateral millicent laminectomy today. He will be discharged home today Carlo Dang MD Jul 03, 2016 16:58
--- NOTE | 2016-07-03 21:01 | EKG ---
Date Performed: 07/02/2016 Time Performed: 11:01:00 PTAGE: 50 years EKG: Sinus rhythm with PAC(s). Possible right atrial abnormality Borderline ECG PREVIOUS TRACING : 05/06/2014 06.55 Compared to prior tracing no significant change DOCTOR: Shar Joyce Interpretating Date/Time 07/03/2016 21:00:44
--- NOTE | 2016-07-07 09:07 | MP ---
cc: KORI MOISE M.D., ALBERT DATE OF SURGERY: 07/03/2016 PREOPERATIVE DIAGNOSIS: 1. L4-5 moderately severe spinal stenosis, grade 1 spinal faces 2. L3-4 moderate spinal stenosis. 3. Lumbar spine degenerative osteoarthritis. 4. Right greater left lumbar radiculitis with right lower extremity weakness. POSTOPERATIVE DIAGNOSIS 1. L4-5 moderately severe spinal stenosis, grade 1 spinal faces 2. L3-4 moderate spinal stenosis. 3. Lumbar spine degenerative osteoarthritis. 4. Right greater left lumbar radiculitis with right lower Extremity weakness. SURGEON Pasha Ayala MD. FINGERNAIL TECHNICIAN: Lorenza LUZ ESTIMATED BLOOD LOSS 150 cc COMPLICATIONS None ANESTHESIA General DRAINS: None. CONDITION: The condition stable PLAN OF ACTIVITY: Is as per orders. PROCEDURE My assistant men's lacrosse coach NATTY Urrutia was present for the entire surgical case. She was medically necessary for entire case because of the complexity case and to facilitate the performance of the procedure. The REGIONAL SALES DIRECTOR at back table not a skill set manipulate the instruments e.g. multiple different soft tissue tractors nerve retractors and in and nerve root retractors. The patient was brought into the operating room, had satisfactory general endotracheal anesthesia by Dr. Juan M Kessler Department of Anesthesia. The patient was carefully transferred onto the Otter-Shetty spinal frame. All pressure points well-padded. Lumbosacral spine was prepped and draped in the usual sterile manner. Localizing x-ray was used to identify the L3-4, L4-5 interspaces. He 0.25% Marcaine with epinephrine was used to infiltrate the operative site. A midline incision made over L3-4, L4-5. Divided, dissection skin and subcutaneous tissue. Paraspinal muscles were gently removed from posterior elements bilaterally at L4 and L5 and L3 and L4. Again throughout the entire procedure. The frequent localization was made to confirm the interspaces of L4-5 and L3-L4. In addition a L4-5 interspace was performed. A bilateral decompressive hemilaminectomy performed, bilateral foraminal partial facetectomy. The patient found to have moderately severe spinal stenosis and foraminal stenosis more on the right then the left side. The patient found to have bulging disk. No evidence of herniated nucleus pulposus. Great care was made to provide satisfactory decompression with no evidence of any cerebrospinal fluid leaks or bleeding. The interspace at L3-L4 was also identified, a bilateral decompressive hemilaminectomy was performed with bilateral foraminotomy, partial facetectomies. Again the patient found to have more foraminal stenosis on the right side compared with the left. There was a inspection that this patient both discs note herniated nucleus pulposus. The wound was irrigated with copious amounts of sterile saline. The wound itself was dry, it was closed in routine manner. The fascia was closed with #2 Tycron subcutaneous layer with multiple interrupted 2-0 Vicryl suture. Skin approximated with running subcuticular 3-0 Vicryl. Dermabond placed over the skin incision. The patient tolerated the procedure well and went to the Recovery Room in stable and satisfactory condition. MD ABIEL Owens/almaz /2:27 PM /9:04 AM
== END 2016-07-03 17:48 | disposition home or self-care (01) | DRG 517 ==
LOC: NEPD 16:23 → INTOOBSV 23:38 → OBSVTOIN 23:38 → NEDA 23:38 → N04A 07-02 02:14
PROVIDERS: ADMIT Hospitalist; ATTEND Hospitalist
PROC: 01NB0ZZ Release Lumbar Nerve, Open Approach (ICD-10-PCS; principal; 2016-07-03 11:56)
DX: M51.16 Intervertebral disc disorders with radiculopathy, lumbar region (principal); I10 Essential (primary) hypertension; M48.06 Spinal stenosis, lumbar region; M51.27 Other intervertebral disc displacement, lumbosacral region; E78.00 Pure hypercholesterolemia, unspecified; M10.9 Gout, unspecified; G89.29 Other chronic pain; M19.90 Unspecified osteoarthritis, unspecified site; K21.9 Gastro-esophageal reflux disease without esophagitis; I25.2 Old myocardial infarction; F32.9 Major depressive disorder, single episode, unspecified; F41.9 Anxiety disorder, unspecified; Z96.652 Presence of left artificial knee joint; I25.10 Atherosclerotic heart disease of native coronary artery without angina pectoris; Z95.5 Presence of coronary angioplasty implant and graft; R20.0 Anesthesia of skin; E78.5 Hyperlipidemia, unspecified; D72.829 Elevated white blood cell count, unspecified; E86.0 Dehydration; M43.16 Spondylolisthesis, lumbar region; M25.78 Osteophyte, vertebrae; Z98.1 Arthrodesis status; Z96.641 Presence of right artificial hip joint; M47.896 Other spondylosis, lumbar region
CPT/HCPCS: 72020; 72146; 72148; 76000; 80048; 80053; 81001; 82550; 85025; 85610; 87040; 93005; 96374; 96375; J0690; J1100; J1170; J1580; J2250; J2270; J2405; J3010; J3370; J7030; J7120

== ENCOUNTER 2017-11-22 00:46 | Inpatient (IN) ==
--- NOTE | 2017-11-22 01:08 | ED ---
HPI General Chief Complaint: Chest Pain Stated Complaint: chest pains Time Seen by Provider: 11/22/17 01:04 Source: patient Mode of arrival: ambulatory Limitations: no limitations History of Present Illness HPI narrative: Patient is a 51-year-old male with history of hypertension, coronary artery disease, hyperlipidemia; presents to the emergency room with complaints of chest pain. Patient reports that around 11 PM, he was getting ready to go to bed. Patient reports that he began to have chest pain. Chest pain was midsternal in nature, reports that it felt sharp and stabbing but also felt like a pressure to his chest. Patient reports that it felt as if someone was stepping on his chest. Patient did have some nausea and vomiting with the symptoms along with diaphoresis. Patient thought that it was indigestion at first and took some antacids with no relief of symptoms. Reports that he drove himself to the hospital but sat outside for an hour hoping it would go away, when chest pain got worse, patient decided to be seen in the emergency room. Patient reports that he does follow-up with a front desk, Dr. Flores. He has had history of an ID in 2009 resulting in 2 cardiac stents. Patient does take a baby aspirin per day. Patient did take a few baby aspirins prior to coming to the emergency room today. Complete Quality Measures for STEMI Alert Patients Related Data Home Medications Medication Instructions Recorded Confirmed aspirin [Aspir-81] 81 mg PO DAILY 11/22/17 11/22/17 atenolol 25 mg PO DAILY 11/22/17 11/22/17 atorvastatin 20 mg PO DAILY 11/22/17 11/22/17 gabapentin 600 mg PO TID 11/22/17 11/22/17 hydrocodone bitartrate 10 mg PO Q12H 11/22/17 11/22/17 Allergies Allergy/AdvReac Type Severity Reaction Status Date / Time morphine Allergy Vomiting Verified 11/22/17 01:12 Review of Systems ROS: all other systems reviewed are negative [facility] Medical History Medical History CAD (coronary artery disease) (Acute) Hyperlipidemia (Acute) Hypertension (Acute) Surgical History Surgical History H/O left knee surgery (Acute) H/O neck surgery (Acute) History of back surgery (Acute) History of right hip replacement (Acute) History of heart artery stent (Acute) Social History Social History Substance History: No History of Abuse Smoking Status: Never smoker How Often Do You Have a Drink Containing Alcohol: Never Recent Travel in [facility] within the Last 8 Weeks: No Recent Out of Country Travel within the Last 8 Weeks: No Exam Narrative Exam Narrative: GENERAL: moderate distress SKIN: Focused skin assessment warm/dry. HEAD: Atraumatic. Normocephalic. EYES: Pupils equal and round. No scleral icterus. No injection or drainage. ENT: No nasal bleeding or discharge. Mucous membranes pink and moist. NECK: Trachea midline. No JVD. CARDIOVASCULAR: Regular rate and rhythm. No murmur appreciated. RESPIRATORY: No accessory muscle use. Clear to auscultation. Breath sounds equal bilaterally. GASTROINTESTINAL: Abdomen soft, non-tender, nondistended. Hepatic and splenic margins not palpable. MUSCULOSKELETAL: No obvious deformities. No clubbing. No cyanosis. No edema. NEUROLOGICAL: Awake and alert. No obvious cranial nerve deficits. Motor grossly within normal limits. Normal speech. PSYCHIATRIC: Appropriate mood and affect; insight and judgment normal. Course Initial Documented Vital Signs Temperature 98.7 F 11/22/17 01:00 Pulse Rate 63 11/22/17 01:00 Respiratory Rate 16 11/22/17 01:00 Blood Pressure 177/108 H 11/22/17 01:00 Pulse Oximetry 98 11/22/17 01:00 Last Documented Vital Signs Temperature 98.0 F 11/22/17 01:16 Pulse Rate 59 L 11/22/17 02:34 Respiratory Rate 16 11/22/17 02:34 Blood Pressure 148/97 H 11/22/17 02:34 Pulse Oximetry 94 L 11/22/17 02:34 Critical Care Time Critical Care Time: Yes Total Critical Care Time: 45 Attestation: Aggregate critical care time was 45 minutes. Time to perform other separately billable procedures was not included in the critical care time. My time did not include minutes spent treating any other patients simultaneously or on activities that did not directly contribute to the patient's treatment. The services I provided to this patient were to treat and/or prevent clinically significant deterioration that could result in: , decompensation, deterioration I provided critical care services requiring my management, as noted below: Chart data review, documentation time, medication orders and management, vital sign assessments/reviewing monitor data, ordering and reviewing lab tests, ordering and interpreting/reviewing x-rays and diagnostic studies, care of the patient and discussion of the patient with the admitting physicians. Medical Decision Making MDM Narrative Medical decision making narrative: During the course of the patients emergency department visit, the patients history, examination, and differential diagnosis were reviewed with the patient. The patient was placed on a teletypesetter monitor with oximetry and frequent blood pressure monitoring. The patient had an IV access obtained and blood work sent for analysis. The patient was initially provided SL nitro Patient was given 3 SL nitro with no relief of symptoms, I am concerned for unstable angina - plan to start patient on heparin drip as well as nitro drip Patient with a troponin 0.08, patient was given 1mg of diluadid as he has tolerated this in the past Patient with continued crushing chest pain, repeat ekg shows st seg elevation in V1-V2 which appears to be progressing. Patient has been started on nitro drip with no relief of symptoms. STEMI alert called overhead Case reviewed with Dr. Swann who will take patient to label remover tonight Discussed with patient need to go for the label remover - patient will rescind his DNR and will be a FULL CODE for the cardiac cath Medical Screen Exam Complete: Yes Emergency Medical Condition: Yes Differential Diagnosis Differential Diagnosis: ACS, arrhythmia, GERD Medical Records Medical records reviewed: Yes I reviewed the patient's medical records. Lab Data Result diagrams: 11/22/17 01:13 11/22/17 01:13 Lab Results 11/22/17 11/22/17 11/22/17 Range/Units 01:13 01:13 01:13 WBC 12.8 H (4.0-11.0) th/mm3 RBC 5.51 (4.50-5.90) mil/mm3 Hgb 16.9 (13.0-17.0) gm/dL Hct 50.7 (39.0-51.0) % MCV 92.2 (80.0-100.0) fL MCH 30.8 (27.0-34.0) pg MCHC 33.4 (32.0-36.0) % RDW 13.7 (11.6-17.2) % Plt Count 159 (150-450) th/mm3 MPV 10.4 (7.0-11.0) fL Neut % (Auto) 70.1 H (16.0-70.0) % Lymph % (Auto) 19.7 (9.0-44.0) % [place] % (Auto) 8.0 (0.0-8.0) % Eos % (Auto) 1.5 (0.0-4.0) % Baso % (Auto) 0.7 (0.0-2.0) % Neut # (Auto) 9.0 H (1.8-7.7) th/mm3 Lymph # (Auto) 2.5 (1.0-4.8) th/mm3 [place] # (Auto) 1.0 H (0.0-0.9) th/mm3 Eos # (Auto) 0.2 (0.0-0.4) th/mm3 Baso # (Auto) 0.1 (0.0-0.2) th/mm3 WBC Differential . Differential Comment Auto diff final PT 10.1 (9.8-11.6) sec INR 1.0 Ratio APTT 26.7 (24.3-30.1) sec Sodium 138 (136-145) meq/L Potassium 3.8 (3.5-5.1) meq/L Chloride 100 (98-107) meq/L Carbon Dioxide 29.2 (21.0-32.0) meq/L Anion Gap 9 (5-15) meq/L BUN 12 (7-18) mg/dL Creatinine 1.60 H (0.60-1.30) mg/dL Estimated GFR 46 L (>89) mL/min Random Glucose 141 H (74-106) mg/dL Calcium 8.8 (8.5-10.1) mg/dL Total Bilirubin 0.4 (0.2-1.0) mg/dL AST 52 H (15-37) U/L ALT 51 (12-78) U/L Alkaline Phosphatase 82 (45-117) U/L Total Creatine Kinase 1702 H (39-308) U/L CK-MB (CK-2) 15.5 H (0.5-3.6) ng/mL CK-MB (CK-2) % 0.9 (0.0-4.0) % Troponin I 0.08 H (0.02-0.05) ng/mL B-Natriuretic Peptide (0-100) pg/mL Total Protein 7.8 (6.4-8.2) g/dL Albumin 4.0 (3.4-5.0) g/dL Lipase 145 (73-393) U/L 11/22/17 Range/Units 01:13 WBC (4.0-11.0) th/mm3 RBC (4.50-5.90) mil/mm3 Hgb (13.0-17.0) gm/dL Hct (39.0-51.0) % MCV (80.0-100.0) fL MCH (27.0-34.0) pg MCHC (32.0-36.0) % RDW (11.6-17.2) % Plt Count (150-450) th/mm3 MPV (7.0-11.0) fL Neut % (Auto) (16.0-70.0) % Lymph % (Auto) (9.0-44.0) % [place] % (Auto) (0.0-8.0) % Eos % (Auto) (0.0-4.0) % Baso % (Auto) (0.0-2.0) % Neut # (Auto) (1.8-7.7) th/mm3 Lymph # (Auto) (1.0-4.8) th/mm3 [place] # (Auto) (0.0-0.9) th/mm3 Eos # (Auto) (0.0-0.4) th/mm3 Baso # (Auto) (0.0-0.2) th/mm3 WBC Differential Differential Comment PT (9.8-11.6) sec INR Ratio APTT (24.3-30.1) sec Sodium (136-145) meq/L Potassium (3.5-5.1) meq/L Chloride (98-107) meq/L Carbon Dioxide (21.0-32.0) meq/L Anion Gap (5-15) meq/L BUN (7-18) mg/dL Creatinine (0.60-1.30) mg/dL Estimated GFR (>89) mL/min Random Glucose (74-106) mg/dL Calcium (8.5-10.1) mg/dL Total Bilirubin (0.2-1.0) mg/dL AST (15-37) U/L ALT (12-78) U/L Alkaline Phosphatase (45-117) U/L Total Creatine Kinase (39-308) U/L CK-MB (CK-2) (0.5-3.6) ng/mL CK-MB (CK-2) % (0.0-4.0) % Troponin I (0.02-0.05) ng/mL B-Natriuretic Peptide 14 (0-100) pg/mL Total Protein (6.4-8.2) g/dL Albumin (3.4-5.0) g/dL Lipase (73-393) U/L Imaging Data Radiologist's impression: Chest X-Ray 11/22/17 01:05 CONCLUSION: Negative examination. ECG Data EKG Prior to Arrival: No Attestation: I personally reviewed and interpreted this ECG as follows: Interpretation: EKG at 0052 to show sinus bradycardia at 59 bpm, QT/QTc 376/375 , patient has ST segment depressions in leads I, II, aVL Repeat EKG at 0110 shows sinus bradycardia at 59 bpm, QT/QTc 365/365 Discharge Plan Discharge Disposition Patient Disposition: 30 Still Patient Discharge Condition Condition: Serious Discharge Details Diagnosis: ST elevation (STEMI) myocardial infarction Physicians Team ED Provider: Nohemi Gonzales Primary Care Provider: Jens Valentine Rxs /Orders / Referrals /Forms Prescriptions: No Action gabapentin 600 mg Tablet 600 mg PO TID RF: 0 atorvastatin 20 mg Tablet 20 mg PO DAILY RF: 0 atenolol 25 mg Tablet 25 mg PO DAILY RF: 0 aspirin [Aspir-81] 81 mg Tablet,Delayed Release (Dr/Ec) 81 mg PO DAILY RF: 0 hydrocodone bitartrate 10 mg Capsule, Oral Only, Er 12hr 10 mg PO Q12H RF: 0 Discharge Instructions Patient Printed Instructions: Chest Pain (ED) Status ED Status: With Doctor
[2017-11-22 01:26] LABS: Baso # (Auto) 0.1 th/mm3 (0.0-0.2); Baso % (Auto) 0.7 % (0.0-2.0); Eos # (Auto) 0.2 th/mm3 (0.0-0.4); Eos % (Auto) 1.5 % (0.0-4.0); Hematocrit 50.7 % (39.0-51.0); Hemoglobin 16.9 gm/dL (13.0-17.0); Lymph # (Auto) 2.5 th/mm3 (1.0-4.8); Lymph % (Auto) 19.7 % (9.0-44.0); Mean Corpuscular HGB Conc 33.4 % (32.0-36.0); Mean Corpuscular Hemoglobin 30.8 pg (27.0-34.0); Mean Corpuscular Volume 92.2 fL (80.0-100.0); Mean Platelet Volume 10.4 fL (7.0-11.0); Neut % (Auto) 70.1 % (16.0-70.0); Platelet Count 159 th/mm3 (150-450); Red Blood Count 5.51 mil/mm3 (4.50-5.90); Red Cell Distribution Width 13.7 % (11.6-17.2); White Blood Count 12.8 th/mm3 (4.0-11.0)
[2017-11-22 01:36] LABS: Activated Partial Thrombo Time 26.7 sec (24.3-30.1); Prothrombin Time 10.1 sec (9.8-11.6)
[2017-11-22 01:42] LABS: Alanine Aminotransferase 51 U/L (12-78); Anion Gap 9 meq/L (5-15); Aspartate Aminotransferase 52 U/L (15-37); Blood Urea Nitrogen 12 mg/dL (7-18); Calcium 8.8 mg/dL (8.5-10.1); Carbon Dioxide 29.2 meq/L (21.0-32.0); Chloride 100 meq/L (98-107); Glomerular Filtration Rate 46 mL/min (>89); Glucose,Random 141 mg/dL (74-106); Lipase 145 U/L (73-393); Potassium 3.8 meq/L (3.5-5.1); Sodium 138 meq/L (136-145)
[2017-11-22] MEDS ORDERED: Heparin Drip 25,000 UNIT/250 ML BAG IV.CONT PRN (01:43)
[2017-11-22] MEDS ORDERED: Nitroglycerin Drip Premix 50 MG/250 ML BOTTLE IV.CONT PRN (01:43)
[2017-11-22 01:56] LABS: Alkaline Phosphatase 82 U/L (45-117); Creatine Kinase 1702 U/L (39-308); Total Protein 7.8 g/dL (6.4-8.2); Troponin I 0.08 ng/mL (0.02-0.05)
[2017-11-22] MEDS ORDERED: Sod Chloride 0.9% Inj 1,000 ML IV.SIG SCH (02:00)
[2017-11-22] MEDS ORDERED: HYDROmorphone PF Inj 0.5 MG/0.5 ML Syringe IV.PUSH STA (02:01)
[2017-11-22 02:08] LABS: CKMB Percent 0.9 % (0.0-4.0); Creatine Kinase MB 15.5 ng/mL (0.5-3.6)
[2017-11-22] MEDS ORDERED: HYDROmorphone PF Inj 2 MG/ML Vial IV.PUSH ONE ×2 (02:08→02:30)
--- NOTE | 2017-11-22 02:15 | XR ---
EXAM DATE: 11/22/2017 1:59 AM EDT AGE/SEX: 51 years / Male INDICATIONS: Chest pain. CLINICAL DATA: This is the patient's initial encounter. Patient reports that signs and symptoms have been present for 1 day and indicates a pain score of 10/10. MEDICAL/SURGICAL HISTORY: Hypertension. None. COMPARISON: No prior exams available for comparison. FINDINGS: A single AP view of the chest demonstrates the lungs to be symmetrically aerated without evidence of mass, infiltrate or effusion. The cardiomediastinal contours are unremarkable. Osseous structures a re intact. CONCLUSION: Negative examination. Electronically signed by: Elbert Garcia MD 11/22/2017 2:14 AM EDT
[2017-11-22] MEDS ORDERED: Heparin 10,000 UNITS/10 ML Vial (for IV use) IV.PUSH STA (02:28)
[2017-11-22] MEDS ORDERED: Heparin/NS PF Inj 1,000 ML ONE (03:06)
[2017-11-22] MEDS ORDERED: Heparin 10,000 UNITS/10 ML Vial (for IV use) ONE (03:23)
[2017-11-22] MEDS ORDERED: fentaNYL Citrate Inj 100 MCG/2 ML Ampul ONE (03:29)
--- NOTE | 2017-11-22 04:37 | CATHPROC ---
MyDoc[employer] HIS Report Study Information Study Number Admission Scheduled Start Study Start [id number] Nov 22 2017 2:51AM 11/22/2017 Nov 22 2017 3:05AM [place] [facility] Cardiac Catheterization Admit Source Facility Department Emergency department [facility] - Certified Phlebotomist Physician and Clinical Staff Initial [facility] Director Mohan Leiva,DINESH Pharmacy Director Iwona Hernandez,DINESH Recorder Kesha Winchester,RT(R) Scrub Marlon SilveiraRT(R) Procedures Performed Procedure Location (Site) Vessel Name Coronary Angiograms LCA Left Coronary Coronary Angiograms RCA Right Coronary Drug Eluting Inflatio CIRC Prox CIRC Drug Eluting Inflatio LAD Mid Left Coronary L Heart Cath PTCA CIRC Prox CIRC PTCA LAD Mid Left Coronary PTCA ADD ON'S Wire insertion Fem Art (right) Femoral Art Equipment Time Clinical Office Technician Description Size Mfg Part Number Used/Scraped WIRE, BALANCE MIDDLEWEIGHT [id number] 03:36 [employer] 190CM Used 190CM *[id number] TRANSDUCER, TRUWAVE [id number] 03:07 PERALTA MOSQUERA * Used W/STOCKCOCK *[id number] TRANSDUCER, TRUWAVE [id number] 03:28 PERALTA MOSQUERA * Used W/STOCKCOCK *[id number] INTRODUCER SET, 03:28 [employer] FR 5 [id number] *[id number] Used MICROPUNCTURE STIFF [id number] 04:15 DAIG/[employer] ANGIOSEAL, FR6 VIP FR 6 Used *[id number] 03:07 [employer] BLANKET,WARM AIR CCL * Used *[id number] 03:07 [employer] PACK, CCL CUSTOM * Used *[id number] 03:28 [employer] PACK, CCL CUSTOM * Used *[id number] 03:41 [employer] BALLOON, 2.0 X 15MM EUPHORA 15MM Used *[id number] BALLOON, 3.0 X 15MM NC [id number] 03:50 [employer] 15MM Used EUPHORA *[id number] 03:33 [employer] JR 4.0 DXTERITY CATHETER FR 5 Used *[id number] 04:00 [employer] STENT, 3.0 15MM HILDA 3.0 15MM Used *8132744 [id number] 04:03 [employer] STENT, 3.0 18MM HILDA 3.0 18MM Used *[id number] 03:46 [employer] STENT, 3.0 22MM HLIDA 3.0 22MM Used *[id number] [id number] 03:36 [employer]/AVE EBU 4.0 Z2 GUIDE CATHETER FR 6 Used *4536163 [id number] 03:36 [employer] MEDICAL 30 TOMÁS INDEFLATOR Used *7526003 [id number] 03:07 [employer] MEDICAL SHEATH, FR6.5 PRELUDE 11CM FR 6.5 038ACT Used *7034298 [id number] 03:07 [employer] MEDICAL WIRE, 3MMJ .035 180CM 180CM Used *6247430 [id number] 03:28 [employer] MEDICAL WIRE, 3MMJ .035 180CM 180CM Used *[id number] [id number] 03:07 [employer] MANIFOLD, 4 PORT * Used *[id number] 03:07 [employer] OMNIPAQUE, 350 MG, 150ML 150ML [id number] Used 03:28 [employer] OMNIPAQUE, 350 MG, 150ML 150ML [id number] Used 03:36 [employer] OMNIPAQUE, 350 MG, 50ML 50ML [id number] Used [id number] 03:28 [employer] MED[employer] SHEATH, FR5 TERUMO (10CM) FR 5 Used *[id number] [id number] 03:27 [employer] MED[employer] SHEATH, FR6 TERUMO (10CM) FR 6 Used *[id number] Equipment Model, Serial, Lot Number and Expiration Data Description Model Number Serial Number Lot Number Expiration Date STENT, 3.0 15MM HILDA [id number] 05-07-2019 STENT, 3.0 18MM HILDA [id number] 05-27-2019 STENT, 3.0 22MM HILDA [id number] 04-29-2019 History: Risk Factors Family History of Hypertension Dyslipidemia Previous NM Previous Heart Failure Premature CAD Yes Yes No Yes No Prior Valve Prior PCI Prior PCIDate Prior CABG Surgery No Yes 03/23/2009 No Cerebrovascular Peripheral Artery Chronic Lung On Dialysis Diabetes Disease Disease Disease No No No No No Labs Hgb (g/dl) Hct (%) WBC (l/cumm) Platelets (thousands) 11.60-17.00 35.00-51.00 4.00-11.00 150.00-450.00 16.9 50.7 12.8 159 Glucose (mg/dl) BUN (mg/dl) Creatinine (mg/dl) BUN:Creatinine (1:x) 74.00-106.00 7.00-18.00 0.50-1.30 10.00-20.00 141 12 1.6 7.5 Na (meq/l) K (meq/l) CO2 (mmol/L) 136.00-145.00 3.50-5.10 21.00-32.00 138 3.8 29.2 INR (PTT:PT) 0.90-1.10 1 Troponin I (ng/ml) CPK (u/l) CPK-MB (ng/ML) 0.02-0.05 26.00-308.00 0.50-3.60 0.08 1702 15.5 Medication Medication Total Dose (Bolus/Oral) Medication Total Dosage/Unit 1% XYLOCAINE 40 mL BRILLINTA 180 mg FENTANYL 100 mcg HEPARIN 60073 units LASIX 20 mg NTG (IC) 200 mcg VERSED 1 mg Medications (Bolus/Oral) Medication Time Given Dosage/Unit Administered By Reason 1% XYLOCAINE 11/22/2017 3:23:33 AM 20 mL Wilver Swann 20 mL 1% XYLOCAINE given in lab by Wilver Swann in Right Radial via Subcutaneous. VERSED 11/22/2017 3:27:20 AM 0.5 mg Mohan Leiva 0.5 mg VERSED given in lab by Mohan Leiva RN via Peripheral IV. FENTANYL 11/22/2017 3:28:17 AM 50 mcg Mohan Leiva 50 mcg FENTANYL given in lab by Mohan Leiva RN via Peripheral IV. 1% XYLOCAINE 11/22/2017 3:29:52 AM 20 mL Wilver Swann 20 mL 1% XYLOCAINE given in lab by Wilver Swann in Right Groin via Subcutaneous. HEPARIN 11/22/2017 3:40:35 AM 6000 units Mohan Leiva 6000 units HEPARIN given in lab by Mohan Leiva RN via Peripheral IV. VERSED 11/22/2017 3:46:20 AM 0.5 mg Mohan Leiva 0.5 mg VERSED given in lab by Mohan Leiva RN via Peripheral IV. FENTANYL 11/22/2017 3:47:31 AM 50 mcg Mohan Leiva 50 mcg FENTANYL given in lab by Mohan Leiva RN via Peripheral IV. LASIX 11/22/2017 3:53:55 AM 20 mg Mohan Leiva 20 mg LASIX given in lab by Mohan Leiva RN via Peripheral IV. HEPARIN 11/22/2017 3:56:07 AM 3000 units Mohan Leiva 3000 units HEPARIN given in lab by Mohan Leiva RN via Peripheral IV. NTG (IC) 11/22/2017 4:12:39 AM 200 mcg Wilver Swann 200 mcg NTG (IC) given in lab by Wilver Swann via Intra-coronary. HEPARIN 11/22/2017 4:13:31 AM 2000 units Mohan Leiva 2000 units HEPARIN given in lab by Mohan Leiva RN via Peripheral IV. BRILLINTA 11/22/2017 4:20:29 AM 180 mg Iwona Hernandez 180 mg BRILLINTA given in lab by Iwona Hernandez RN in Per mouth via Oral. Medication (Drip) Medication Time Given Dosage/Unit Concentration/Unit Diluent (ml) Solution HEPARIN DRIP 11/22/2017 3:19:16 AM 1000 units/hr 47711 units 250 D5W Patient arrived on 1000 units/hr HEPARIN DRIP in Left Antecubital via Peripheral IV. Pump/Drip Flow = 10 ml/hr [place] [address] units in 250 ml. HEPARIN DRIP 11/22/2017 3:51:30 AM 1500 units/hr 72245 units 250 D5W 1500 units/hr HEPARIN DRIP given in lab by Mohan Leiva RN via Peripheral IV. Pump/Drip Flow = 15 m l/hr using D5[place] [address] units in 250 ml. NITROGLYCERIN DRIP 11/22/2017 3:18:53 AM 33 mcg/min 50 mg 250 D5W Patient arrived on 33 mcg/min NITROGLYCERIN DRIP in Left Antecubital via Peripheral IV. Pump/Drip Aram w = 9.9 ml/hr using D5W with a concentration of 50 mg in 250 ml. NITROGLYCERIN DRIP 11/22/2017 3:44:14 AM 40 mcg/min 50 mg 250 D5W 40 mcg/min NITROGLYCERIN DRIP given in lab by Iwona Hernandez RN via Peripheral IV. Pump/Drip Flow = 12 ml/hr using D5W with a concentration of 50 mg in 250 ml. NITROGLYCERIN DRIP 11/22/2017 3:47:53 AM 30 mcg/min 50 mg 250 D5W 30 mcg/min NITROGLYCERIN DRIP given in lab by Mohan Leiva RN via Peripheral IV. Pump/Drip Flow = 9 ml/hr using D5W with a concentration of 50 mg in 250 ml. NITROGLYCERIN DRIP 11/22/2017 3:56:56 AM 16.667 mcg/min 50 mg 250 D5W 16.667 mcg/min NITROGLYCERIN DRIP given in lab by Mohan Leiva RN via Peripheral IV. Pump/Drip Flow = 5 ml/hr using D5W with a concentration of 50 mg in 250 ml. Initial Case Assessment Cardiovascular HR Rhythm Chest Pain 67 REG 10 Edema Present Skin color Skin None Normal Warm Circulatory - Right Pulses Dorsalis Pedis Femoral Radial 3 3 3 Scale (0,1,2,3,4,d) Circulatory - Left Pulses Dorsalis Pedis Femoral Radial 3 3 Scale (0,1,2,3,4,d) Circulatory - Lower Extremities Color Lower Right Color Lower Left Normal Normal Neurological State Oriented to time-place- Alert Moves all extremities person Respiration - General Respiration Rate SpO2 (%) O2 (lpm) (B/min) 23 93 2 Final Case Assessment Cardiovascular HR Rhythm NIBP Chest Pain 79 reg 125/77 1 Edema Present Skin color Skin None Normal Warm Circulatory - Right Pulses Dorsalis Pedis Femoral Radial 3 3 3 Scale (0,1,2,3,4,d) Circulatory - Left Pulses Dorsalis Pedis Femoral Radial 3 3 Scale (0,1,2,3,4,d) Circulatory - Lower Extremities Color Lower Right Color Lower Left Normal Normal Neurological State Oriented to time-place- Alert Moves all extremities person Respiration - General Respiration Rate SpO2 (%) O2 (lpm) (B/min) 14 96 2 Chronological Log Time Study Chronological Log 3:04:56 Emergency Room notified that Certified Phlebotomist is ready. 3:05:05 MD arrived. 3:10:49 Patient arrived via Bed. 3:15:55 Patient Name, D.O.B, / Armband Verified By R.N. 3:15:55 Consent signed by the physician and the patient and verified by the Certified Phlebotomist staff. 3:15:56 Pre-op and post- op instructions given; patient acknowledges understanding of instructions. 3:15:57 Verbal Stimulation=2 Physical Stimulation=2 Airway=2 Respiration=2 TOTAL=8. (0=absent, 1=li mited, 2=present) 3:15:58 Allens test performed on the right radial and ulnar artery WITH A POSITIVE RESULT Vitals capture started with the following parameters, Patient=Adult, Interval=3 min, Initial Pr ngxica=480 mmHg, 3:16:15 Deflation Rate=5 mmHg, Cuff placed on Left Arm 3:16:19 Patient has been NPO for More than 6Hrs. 3:16:20 Skin Breakdown-NONE 3:16:33 Vitals capture stopped. Vitals capture started with the following parameters, Patient=Adult, Interval=3 min, Initial Pr axfsir=973 mmHg, 3:16:40 Deflation Rate=5 mmHg, Cuff placed on Left Arm 3:17:01 Reference ECG taken 3:17:16 Patient Warmer Placed on the Table. 3:17:19 A # 20 IV was noted in the Antecubital (left). Grade = 0 3:17:58 HR=60 bpm, KHCA=931/96 mmhg, SpO2=94 %, Resp=10 B/min, Pain=10, Lillie=10, Gatica=2 3:18:30 A # 20 IV was noted in the Antecubital (right). Grade = 0 Patient arrived on 33 mcg/min NITROGLYCERIN DRIP in Left Antecubital via Peripheral IV. Pump/Dri p Flow = 9.9 ml/hr 3:18:53 using D5W with a concentration of 50 mg in 250 ml. Patient arrived on 1000 units/hr HEPARIN DRIP in Left Antecubital via Peripheral IV. Pump/Drip F low = 10 ml/hr using 3:19:16 [place] [address] units in 250 ml. 3:19:46 History and physical on the chart or being dictated. Assessment: Initial Case, HR=67 BPM, Rhythm=REG, Chest Pain=10, Edema=None, Color=Normal, Skin = Warm Right Pulses: Mele Ped=3, Femoral=3, Radial=3 Left Pulses: Mele Ped=3, Femoral=3 3:19:47 Lower Right Extremities: Color=Normal Lower Left Extremities: Color=Normal Neurological: State=Alert, Ox3, SAPP Respiration: Resp=23 B/min, SpO2=93 %, O2=2 lpm 3:20:26 HR=72 bpm, UMYM=730/91 mmhg, SpO2=93.0 %, Resp=21 B/min, Pain=10, Lillie=10, Gatica=2 3:21:09 Right radial, right brachial, and groin(s) prepped with 2% chlorhexidine, and draped after a 3 min. waiting time. Time Out. Correct patient, correct procedure, correct physician, labs, allergies, and equipment verified with blood bank laboratory technician 3:21:34 team present. Fire risk assesment completed (see hard stop sheet for coding). Time Out Concu rred by MD and individual staff in procedure. 3:21:37 Case Start 3:21:39 Verbal Stimulation=2 Physical Stimulation=2 Airway=2 Respiration=2 TOTAL=8. (0=absent, 1=carr ited, 2=present) 3:23:05 Pressure channel 1 zeroed. 3:23:26 HR=64 bpm, NMDO=007/87 mmhg, SpO2=93.0 %, Resp=12 B/min, Pain=10, Lillie=10, Gatica=2 3:23:33 20 mL 1% XYLOCAINE given in lab by Wilver Swann in Right Radial via Subcutaneous. 3:26:15 Access site was Right Radial Artery . 3:26:24 HR=69 bpm, SOLK=815/82 mmhg, SpO2=91.0 %, Resp=15 B/min, Pain=10, Lillie=10, Gatica=2 3:27:20 0.5 mg VERSED given in lab by Mohan Leiva RN via Peripheral IV. 3:27:35 Access site was Right Radial Artery . 3:28:17 50 mcg FENTANYL given in lab by Mohan Leiva RN via Peripheral IV. access aborted-spasm 3:29:23 3:29:52 20 mL 1% XYLOCAINE given in lab by Wilver Swann in Right Groin via Subcutaneous. 3:30:05 Access site was Right Femoral Artery. 3:30:07 HR=70 bpm, RYTB=785/79 mmhg, SpO2=92.0 %, Resp=11 B/min, Pain=10, Lillie=10, Gatica=2 3:30:10 A wire was inserted via Fem Art (right). 3:30:17 A SHEATH, FR6 TERUMO (10CM) FR 6 was advanced into the Fem Art (right) using the Percutaneou s technique. 3:31:31 An injection in the Fem Art (right) was made through the SHEATH, FR6 TERUMO (10CM) FR 6. 3:32:23 HR=78 bpm, LMYZ=944/87 mmhg, SpO2=92.0 %, Resp=13 B/min, Pain=10, Lillie=10, Gatica=2 A JR 4.0 DXTERITY CATHETER FR 5 was advanced over a wire. OMNIPAQUE, 350 MG, 150ML 150ML was use d for 3:32:41 injections. Recorded Pressure: LV, HR=76, Condition=Condition 1 3:33:46 (Left Ventricle) LV 121/30/28 Recorded Pressure: LV, Ao, HR=79, Condition=Condition 1 3:33:59 (Left Ventricle) LV 123/14/26, (Aorta) Ao 127/88/107 Recorded Pressure: Ao, HR=68, Condition=Condition 1 3:34:56 (Aorta) Ao 116/80/97 3:35:07 The RCA was injected and visualized at various angles. OMNIPAQUE, 350 MG, 150ML 150ML used. After removing the current catheter a EBU 4.0 Z2 GUIDE CATHETER FR 6 was advanced over a WIRE, 3 MMJ .035 3:35:17 180CM 180CM. 3:35:23 HR=81 bpm, SLHX=149/91 mmhg, SpO2=90.0 %, Resp=20 B/min, Pain=10, Lillie=10, Gatica=2 3:35:58 OMNIPAQUE, 350 MG, 50ML 50ML and 30 TOMÁS INDEFLATOR added. 3:38:25 HR=66 bpm, MYMV=705/88 mmhg, SpO2=92.0 %, Resp=6 B/min, Pain=10, Lillie=10, Gatica=2 3:39:26 The LCA was injected and visualized at various angles. OMNIPAQUE, 350 MG, 150ML 150ML used. 3:40:35 6000 units HEPARIN given in lab by Burfield, Mohan, RN via Peripheral IV. 3:41:21 A WIRE, BALANCE MIDDLEWEIGHT 190CM 190CM was inserted via Fem Art (right). 3:41:25 HR=80 bpm, XCJB=929/91 mmhg, SpO2=93.0 %, Resp=14 B/min, Pain=10, Lillie=10, Gatica=2 3:41:44 Interventional wire has crossed the lesion A BALLOON, 2.0 X 15MM EUPHORA 15MM was inserted over WIRE, BALANCE MIDDLEWEIGHT 190CM 190CM via the 3:42:48 CIRC Mid. A BALLOON, 2.0 X 15MM EUPHORA 15MM over a WIRE, BALANCE MIDDLEWEIGHT 190CM 190CM in the CIRC Pro x was 3:42:58 inflated using a 30 TOMÁS INDEFLATOR at 10 tomás for 10 sec. 40 mcg/min NITROGLYCERIN DRIP given in lab by Iwona Hernandez RN via Peripheral IV. Pump/Drip Fl ow = 12 ml/hr 3:44:14 using D5W with a concentration of 50 mg in 250 ml. 3:44:28 HR=76 bpm, IKOL=637/76 mmhg, SpO2=92.0 %, Resp=15 B/min, Pain=10, Lillie=10, Gatica=2 3:44:32 Balloon Removed. A STENT, 3.0 22MM HILDA 3.0 22MM was advanced through a EBU 4.0 Z2 GUIDE CATHETER FR 6 over a WIR E, 3:46:03 BALANCE MIDDLEWEIGHT 190CM 190CM. 3:46:20 0.5 mg VERSED given in lab by oMhan Leiva RN via Peripheral IV. A STENT, 3.0 22MM HILDA 3.0 22MM was deployed using a 30 TOMÁS INDEFLATOR at 14 atmospheres for 30 seconds in 3:46:41 the CIRC Prox. 3:47:31 50 mcg FENTANYL given in lab by Mohan Leiva RN via Peripheral IV. 30 mcg/min NITROGLYCERIN DRIP given in lab by Mohan Leiva RN via Peripheral IV. Pump/Drip Aram w = 9 ml/hr using 3:47:53 D5W with a concentration of 50 mg in 250 ml. 3:49:26 Delivery device removed A BALLOON, 3.0 X 15MM NC EUPHORA 15MM was inserted over WIRE, BALANCE MIDDLEWEIGHT 190CM 190CM v ia 3:49:45 the CIRC Prox. 3:50:34 Activated Clotting Time Drawn 3:51:04 nitro discontinued per physician 1500 units/hr HEPARIN DRIP given in lab by Mohan Leiva RN via Peripheral IV. Pump/Drip Flow = 15 ml/hr using D5W 3:51:30 [place] [address] units in 250 ml. A BALLOON, 3.0 X 15MM NC EUPHORA 15MM over a WIRE, BALANCE MIDDLEWEIGHT 190CM 190CM in the CIRC Prox 3:51:50 was inflated using a 30 TOMÁS INDEFLATOR at 14 tomás for 10 sec. A BALLOON, 3.0 X 15MM NC EUPHORA 15MM over a WIRE, BALANCE MIDDLEWEIGHT 190CM 190CM in the CIRC Prox 3:52:19 was inflated using a 30 TOMÁS INDEFLATOR at 15 tomás for 10 sec. Vitals capture started with the following parameters, Patient=Adult, Interval=3 min, Initial Pre tauic=670 mmHg, 3:52:36 Deflation Rate=5 mmHg, Cuff placed on Left Arm A BALLOON, 3.0 X 15MM NC EUPHORA 15MM over a WIRE, BALANCE MIDDLEWEIGHT 190CM 190CM in the CIRC Prox 3:52:48 was inflated using a 30 TOMÁS INDEFLATOR at 16 tomás for 10 sec. 3:53:14 Balloon Removed. 3:53:16 HR=74 bpm, QCUB=876/86 mmhg, SpO2=95.0 %, Resp=17 B/min, Pain=10, Lillie=10, Gatica=2 3:53:21 The LCA was injected and visualized at various angles. OMNIPAQUE, 350 MG, 150ML 150ML used. 3:53:55 20 mg LASIX given in lab by Mohan Leiva RN via Peripheral IV. 3:54:57 ACT (Normal Range 90-180) = 229 3:56:07 3000 units HEPARIN given in lab by Mohan Leiva RN via Peripheral IV. 3:56:18 HR=75 bpm, ZQTR=309/73 mmhg, SpO2=94.0 %, Resp=10 B/min, Pain=10, Lillie=10, Gatica=2 16.667 mcg/min NITROGLYCERIN DRIP given in lab by Mohan Leiva RN via Peripheral IV. Pump/Drip Flow = 5 ml/hr 3:56:56 using D5W with a concentration of 50 mg in 250 ml. 3:57:50 A WIRE, BALANCE MIDDLEWEIGHT 190CM 190CM was inserted via Fem Art (right). redirected into L AD 3:58:23 Interventional wire has crossed the lesion 3:59:14 HR=72 bpm, USAH=823/78 mmhg, SpO2=92 %, Resp=19 B/min, Pain=10, Lillie=10, Gatica=2 A STENT, 3.0 15MM HILDA 3.0 15MM was advanced through a EBU 4.0 Z2 GUIDE CATHETER FR 6 over a WIR E, 3:59:27 BALANCE MIDDLEWEIGHT 190CM 190CM. 4:01:03 nitro discontinued per physician 4:01:42 Stent not deployed. Stent removed and intact. A STENT, 3.0 18MM HILDA 3.0 18MM was advanced through a EBU 4.0 Z2 GUIDE CATHETER FR 6 over a WIR E, 4:02:11 BALANCE MIDDLEWEIGHT 190CM 190CM. 4:02:15 HR=76 bpm, CSHX=062/76 mmhg, SpO2=91.0 %, Resp=17 B/min, Pain=10, Lillie=10, Gatica=2 A STENT, 3.0 18MM HILDA 3.0 18MM was deployed using a 30 TOMÁS INDEFLATOR at 14 atmospheres for 30 seconds in 4:03:26 the LAD Mid. 4:04:57 Delivery device removed 4:05:13 HR=79 bpm, QKMJ=286/84 mmhg, SpO2=94.0 %, Resp=15 B/min, Pain=10, Lillie=10, Gatica=2 4:05:23 The LCA was injected and visualized at various angles. OMNIPAQUE, 350 MG, 150ML 150ML used. A BALLOON, 3.0 X 15MM NC EUPHORA 15MM was inserted over WIRE, BALANCE MIDDLEWEIGHT 190CM 190CM v ia 4:05:33 the LAD Mid. 4:06:54 Activated Clotting Time Drawn A BALLOON, 3.0 X 15MM NC EUPHORA 15MM over a WIRE, BALANCE MIDDLEWEIGHT 190CM 190CM in the LAD M id 4:07:31 was inflated using a 30 TOMÁS INDEFLATOR at 12 tomás for 12 sec. 4:08:17 HR=74 bpm, GSGD=392/78 mmhg, SpO2=92.0 %, Resp=15 B/min, Pain=10, Lillie=10, Gatica=2 A BALLOON, 3.0 X 15MM NC EUPHORA 15MM over a WIRE, BALANCE MIDDLEWEIGHT 190CM 190CM in the LAD M id 4:09:30 was inflated using a 30 TOMÁS INDEFLATOR at 16 tomás for 12 sec. 4:10:06 Balloon Removed. 4:10:12 The LCA was injected and visualized at various angles. OMNIPAQUE, 350 MG, 150ML 150ML used. 4:11:13 HR=72 bpm, GDAR=075/89 mmhg, SpO2=92.0 %, Resp=13 B/min, Pain=10, Lillie=10, Gatica=2 4:12:26 ACT (Normal Range 90-180) = 265 4:12:39 200 mcg NTG (IC) given in lab by Wilver Swann via Intra-coronary. 4:13:21 The LCA was injected and visualized at various angles. OMNIPAQUE, 350 MG, 150ML 150ML used. 4:13:31 2000 units HEPARIN given in lab by Mohan Leiva, RN via Peripheral IV. 4:13:33 Wire removed 4:13:35 Catheter was removed Assessment: Final Case, HR=79 BPM, Rhythm=reg, ULSE=765/77 mmhg, Chest Pain=1, Edema=None, Color =Normal, Skin = Warm Right Pulses: Mele Ped=3, Femoral=3, Radial=3 Left Pulses: Mele Ped=3, Femoral=3 4:13:44 Lower Right Extremities: Color=Normal Lower Left Extremities: Color=Normal Neurological: State=Alert, Ox3, SAPP Respiration: Resp=14 B/min, SpO2=96 %, O2=2 lpm 4:14:18 HR=79 bpm, WONV=484/77 mmhg, SpO2=95.0 %, Resp=11 B/min, Pain=10, Lillie=10, Gatica=2 4:14:47 Catheter(s) removed without difficulty 4:14:49 ANGIOSEAL, FR6 VIP FR 6 placement in the Fem Art (right) 4:15:02 Sterile dressing applied to site 4:15:02 No case complications noted. 4:15:05 Cine recording checked. 4:15:08 Bedside Report will be given. 4:15:10 Implantable Device card placed in patient's chart. 4:15:15 A Left Heart Cath was performed. 4:15:20 Clinical correlaton risk stratification. 4:18:01 HR=76 bpm, FRIL=692/75 mmhg, PbZ5=956.0 %, Resp=19 B/min 4:20:16 HR=75 bpm, WYSQ=707/80 mmhg, SpO2=98.0 %, Resp=18 B/min, Pain=10, Lillie=10, Gatica=2 4:20:29 180 mg BRILLINTA given in lab by Iwona Hernandez RN in Per mouth via Oral. 4:24:06 HR=75 bpm, ETDT=287/78 mmhg, SpO2=96.0 %, Resp=15 B/min, Pain=10, Lillie=10, Gatica=2 pressure dressing placed on right radial 4:29:03 End Study - Contrast Media Used In Study Contrast Total Opened (mL) Total Used (mL) Total Wasted (mL) Omnipaque 150 150 0 End Study - Maximum Contrast Load Max Contrast Load (mL) 312.5 End Study - Radiation Exposure Fluoro Time (minutes) 8.8 End Study - Sheaths Sheaths Pulled By Sheath Hold Time (min) Wilver Swann End Study - Patient Disposition Complications Transferred To Interventional Outcome No Critical Care Bed successful
[2017-11-22] MEDS ORDERED: Misc Info for Pharmacy OTHER STA (04:38)
[2017-11-22 07:27] LABS: Bilirubin,Urine Negative (Negative); Clarity,Urine Clear (Clear); Color,Urine Straw (Yellw/Straw); Glucose,Urine (UA) Negative (Negative); Hyaline Casts,Urine 4 /lpf (0-3); Leukocyte Esterase,Urine Negative (Negative); Mucus,Urine Few /lpf (Occasional); Nitrite,Urine Negative (Negative); Specific Gravity,Urine 1.033 (1.002-1.035)
[2017-11-22] MEDS: Gabapentin 300 MG Capsule PO SCH ×3 (08:15→17:22)
[2017-11-22] MEDS: Atenolol 25 MG Tablet PO SCH (08:16)
--- NOTE | 2017-11-22 08:44 | MH ---
cc: Wilver Swann DO DATE OF ADMISSION: 11/22/2017 CHIEF COMPLAINT: Chest pain. HISTORY OF CHIEF COMPLAINT: Darinel Conner is a 51-year-old male who sees my partner, Dr. Flores, in the office and presented to the emergency room due to chest pain. He states that around 11:00 p.m., he was getting ready to go to bed and reported started having chest pain. Chest pain was in the center of his chest and somewhat sharp and stabbing to start and then felt like pressure afterwards. He felt like someone was sitting on his chest. He had some nausea and vomiting along with some diaphoresis. He thought it was indigestion and so he took some antacids without relief. He drove himself to the hospital, but sat in the parking lot for an hour hoping it would go away, but when the chest pain got worse, he decided he should come into the emergency room. Initial EKGs showed no significant changes, but as he continued to have chest pain, repeat EKGs showed concern for ST elevation anteriorly, so I was called emergently to evaluate the patient. In seeing him, he continues to have chest pain and nitroglycerin as well as Dilaudid were not helpful. PAST MEDICAL HISTORY: 1. Coronary artery disease. 2. Hyperlipidemia. 3. Hypertension. PAST SURGICAL HISTORY: 1. Left knee surgery. 2. Neck surgery. 3. Back surgery. 4. Right hip surgery. 5. Previous PCI of LAD and obtuse marginal (2010). ALLERGIES: MORPHINE. MEDICATIONS: Unknown at this time. FAMILY HISTORY: Denies sudden cardiac within the family. SOCIAL HISTORY: The patient denies tobacco, alcohol, or drug abuse. REVIEW OF SYSTEMS: Fourteen systems were reviewed including osteopathic. Pertinent positives and negatives above, otherwise negative. VITAL SIGNS: VITAL SIGNS: Temperature 98.0, heart rate 67, blood pressure 156/91, respirations 16, pulse oximetry 94% on 3 liters. GENERAL: The patient appears in mild distress due to chest pain. Alert, awake and oriented x3. HEENT: Extraocular muscles intact. Mucous membranes moist. NECK: Supple. No JVD at 45 degrees. No carotid bruits heard bilaterally. Carotid upstroke is brisk in nature. HEART: Regular rate and rhythm. Positive first and second heart sounds with no noted murmurs, gallops or rubs. LUNGS: Clear to auscultation bilaterally. No wheezes, rales or rhonchi. ABDOMEN: Soft, nontender, nondistended. No organomegaly noted. EXTREMITIES: Show no clubbing, cyanosis or edema. Femoral and distal pulses are intact bilaterally. NEUROLOGIC: No focal deficits. SKIN: Warm, dry, and intact. OSTEOPATHIC: No kyphoscoliosis, lordosis or paraspinal tender points. LABORATORY DATA: Hemoglobin 16.9, hematocrit 50.7, platelets 159. Potassium 3.8, BUN 12, creatinine 1.6. Troponin 0.08. Electrocardiogram (11/22/2017 at 02:20), sinus rhythm, ST elevations anteroseptally concerning for possible anterior septal myocardial infarction. IMPRESSION: 1. Acute anteroseptal myocardial infarction. 2. History of coronary artery disease with previous PCI of LAD and circumflex. 3. Hypertension. 4. Hyperlipidemia. 5. Acute kidney injury. RECOMMENDATIONS: 1. Mr. Conner presented with chest pain concerning for coronary insufficiency as well as an EKG showing acute ST elevation. Because of this, he will be taken emergently to the cardiac catheterization lab. Risks, benefits, and alternatives were explained to him and he consented to such. 2. He explained his wishes of wanting to be DNR, but after discussing with them and the reasons why he needs to be FULL CODE to go to the laborer/grade check in case something happens where we would need to defibrillate him acutely, he understands and will resend his DNR status and will be made FULL CODE. He states that his biggest concern was that he ventricular fibrillation arrested in 2010 during his cardiac catheterization and at that time he was no longer in any type of musculoskeletal pain with his neck or back and was in a comfortable place. 3. We will check a 2-D echo to look at his overall left ventricular function, cardiac structure, and possible valvulopathies. 4. Further recommendations will be made based on the hospital course. Thank you for allowing me to see Darinel Conner. If there are any questions, please do not hesitate to call. Wilver Swann DO VGP/ellen , 03:10 AM , 03:20 AM
--- NOTE | 2017-11-22 08:55 | P.HPIM ---
History of Present Illness Primary Care Physician: Jens Valentine MD Chief Complaint: Chest pain History of Present Illness: Wrong template. This should be a consultation. Consultation from Dr. Swann from cardiology. We are consulted for medical comanagement. This is a 51-year-old male with history of hypertension, coronary artery disease , dyslipidemia, who has been in his usual state of health until last night around 11 PM after eating when having substernal chest pain, moderate to severe , described as pressure, like an elephant sitting on his chest. He initially thought that this was because of heartburn, without any resolution after an hour , patient decided to go to the emergency department. Chest pain associated with shortness of breath, nausea, lightheadedness but nonradiating. Chest pain lasted about 2-3 hours. A STEMI alert was called, patient went for cardiac catheterization, status post SERENA to LAD and left circumflex artery. Presently, patient is chest pain-free, denies any shortness of breath or palpitations. Of note, patient had a previous heart attack in 2009, status post PCI 2, status post cardiac arrest. Family history: Grandmother had a massive heart attack. Inpatient Certification: I certify that the inpatient services were ordered in accordance with Medicare regulations governing the order. This includes certification that hospital inpatient services are reasonable and necessary and in the case of services not specified as inpatient-only under 42 CFR 419.22(n), that they are appropriately provided as inpatient services in accordance to with the 2-midnight benchmark under 43 CFR 412.3(e) Estimated Total Length of Stay (Days): 2 Plans for Post Hospital Care: Home Review of Systems All other pertinent systems were reviewed and are negative. [facility] - History History Provided By: Patient - Medical History Medical History: Medical History (Last Reviewed 11/22/17 @ 01:20 by Felicity Bowen) CAD (coronary artery disease) Hyperlipidemia Hypertension - Surgical History Surgical History: Surgical History (Last Updated 11/22/17 @ 01:20 by Felicity Bowen) H/O left knee surgery H/O neck surgery History of back surgery History of right hip replacement History of heart artery stent - Tobacco History Smoking Status: Never smoker - Alcohol History How Often Do You Have a Drink Containing Alcohol: Never - Substance Use History Substance History: No History of Abuse - Travel History Recent Travel in the [place] Within the Last 8 Weeks: No Recent Travel Out of the Country Within the Last 8 Weeks: No - Immunization History Tetanus Immunization: Unsure Medications and Allergies Active Medications: Active Medications Hydrocodone Bitart/Acetaminophen ([place] 10/325) 1 tab PO Q12H [facility] [place] Last Admin: 11/22/17 08:15 Dose: 1 tab Aspirin (Ecotrin) 81 mg PO DAILY [facility] [place] Last Admin: 11/22/17 08:14 Dose: 81 mg Atenolol (Tenormin) 25 mg PO DAILY [facility] [place] Last Admin: 11/22/17 08:16 Dose: 25 mg Atorvastatin Calcium (Lipitor) 20 mg PO DAILY [facility] [place] Last Admin: 11/22/17 08:15 Dose: 20 mg Gabapentin (Neurontin) 600 mg PO TID [facility] [place] Last Admin: 11/22/17 08:15 Dose: 600 mg Nitroglycerin/Dextrose (Nitroglycerin Drip Premix) 50 mg in 250 mls @ 0 mls/hr IV.CONT TITRATE PRN; Protocol PRN Reason: Per Protocol Last Titration: 11/22/17 03:03 Dose: 100 mcg/min, 30 mls/hr Sodium Chloride (Ns Inj) 1,000 mls @ 0 mls/hr IV.SIG BOLUS [facility] [place] Last Infusion: 11/22/17 03:25 Dose: Infused Sodium Chloride (Ns Flush) 2 ml IV.FLUSH BID [facility] [place] Last Admin: 11/22/17 08:16 Dose: 2 ml Sodium Chloride (Ns Flush) 2 ml IV.FLUSH PRN PRN PRN Reason: FLUSH AFTER USING IV ACCESS Ticagrelor (Brilinta) 90 mg PO BID [facility] [place] Last Admin: 11/22/17 08:14 Dose: 90 mg Allergies Allergy/AdvReac Type Severity Reaction Status Date / Time morphine Allergy Vomiting Verified 11/22/17 01:12 Home Medications Medication Instructions Recorded Confirmed Type aspirin [Aspir-81] 81 mg PO DAILY 11/22/17 11/22/17 History atenolol 25 mg PO DAILY 11/22/17 11/22/17 History atorvastatin 20 mg PO DAILY 11/22/17 11/22/17 History gabapentin 600 mg PO TID 11/22/17 11/22/17 History hydrocodone bitartrate 10 mg PO Q12H 11/22/17 11/22/17 History Exam Vital signs: Vital Signs 11/22/17 01:00 11/22/17 01:05 11/22/17 01:10 Temperature 98.7 F Pulse Rate 63 59 L 58 L Pulse Rate [Bilateral Radial] 63 Respiratory Rate 16 16 16 Blood Pressure 148/91 H 123/90 Blood Pressure [Left Arm] 177/108 H Blood Pressure [Right Arm] 184/111 H Pulse Oximetry 98 98 96 11/22/17 01:16 11/22/17 01:37 11/22/17 01:46 Temperature 98.0 F Pulse Rate 63 58 L 64 Pulse Rate [Bilateral Radial] Respiratory Rate 16 16 Blood Pressure 177/111 H 134/80 Blood Pressure [Left Arm] Blood Pressure [Right Arm] Pulse Oximetry 98 98 97 11/22/17 02:34 11/22/17 02:54 11/22/17 04:00 Temperature Pulse Rate 59 L 67 Pulse Rate [Bilateral Radial] Respiratory Rate 16 Blood Pressure 148/97 H 156/91 H Blood Pressure [Left Arm] Blood Pressure [Right Arm] Pulse Oximetry 94 L 99 11/22/17 04:54 11/22/17 05:39 11/22/17 05:45 Temperature 98.9 F Pulse Rate 73 74 68 Pulse Rate [Bilateral Radial] Respiratory Rate 18 18 18 Blood Pressure 133/85 129/85 127/78 Blood Pressure [Left Arm] Blood Pressure [Right Arm] Pulse Oximetry 94 L 94 L 94 L 11/22/17 06:00 11/22/17 06:16 Temperature Pulse Rate 64 73 Pulse Rate [Bilateral Radial] Respiratory Rate 18 Blood Pressure 137/88 Blood Pressure [Left Arm] Blood Pressure [Right Arm] Pulse Oximetry 99 Intake & Output 11/21/17 11/22/17 11/22/17 18:59 06:59 18:59 Intake Total 1250 / 1250 Balance 1250 / 1250 Weight 99 kg Intake: IV 1250 / 1250 Heparin/D5W 25,000 U/250 mL 25, 250 / 250 000 unit In 250 ml @ Per Protocol IV.CONT TITRATE PRN Rx #:[id number] NS Inj 1,000 ML @ Wide Open IV. 1000 / 1000 SIG BOLUS JESUS ALBERTO Rx#:[id number] Narrative: GENERAL: Not in acute distress, well-nourished. HEAD: Atraumatic. Normocephalic. EYES: PERRL, full EOMs, no jaundice, nonicteric, pink conjunctivae without injection, moist mucosa ENT: Nose without bleeding, purulent drainage. NECK: Trachea midline, no mass, no obvious thyromegaly. CARDIOVASCULAR: Regular rate and rhythm without murmurs, gallops, or rubs. RESPIRATORY: Clear to auscultation with normal respiratory effort. Breath sounds equal bilaterally. No use of accessory muscles of respiration. GASTROINTESTINAL: Abdomen soft, normal bowel sounds, non-tender, nondistended. Obese. MUSCULOSKELETAL: Extremities without clubbing, cyanosis, or edema. Multiple joint tenderness, baseline. Right femoral pulses 2+, no hematoma. INTEGUMENTARY: Warm and dry, no rash of generalized distribution. NEUROLOGICAL: Awake, alert, oriented 3. No obvious cranial nerve deficits. Moves all 4 extremities, muscle strength testing 5 over 5. Motor and sensory grossly within normal limits. .Supple neck, no meningeal signs. Grossly negative cerebellar examination. No focal neurologic deficits. Results - Labs CBC & Chem 7: 11/22/17 01:13 11/22/17 01:13 Labs: Short CBC 11/22/17 Range/Units 01:13 WBC 12.8 H (4.0-11.0) th/mm3 Hgb 16.9 (13.0-17.0) gm/dL Hct 50.7 (39.0-51.0) % Plt Count 159 (150-450) th/mm3 BMP 11/22/17 01:13 Sodium 138 Potassium 3.8 Chloride 100 Carbon Dioxide 29.2 BUN 12 Creatinine 1.60 H Calcium 8.8 Cardiac Enzymes 11/22/17 Range/Units 01:13 Total Creatine Kinase 1702 H (39-308) U/L CK-MB (CK-2) 15.5 H (0.5-3.6) ng/mL Troponin I 0.08 H (0.02-0.05) ng/mL Liver Function 11/22/17 Range/Units 01:13 Total Bilirubin 0.4 (0.2-1.0) mg/dL AST 52 H (15-37) U/L ALT 51 (12-78) U/L Alkaline Phosphatase 82 (45-117) U/L Albumin 4.0 (3.4-5.0) g/dL Urine 11/22/17 Range/Units 06:47 Urine Color Straw (Yellw/Straw) Urine Clarity Clear (Clear) Urine pH 5.0 (5.0-8.5) Ur Specific [place] 1.033 (1.002-1.035) Urine Protein Negative (Neg-Trace) mg/dL Urine Glucose (UA) Negative (Negative) mg/dL - Imaging Impressions Chest X-Ray 11/22/17 01:05 CONCLUSION: Negative examination. Caprini VTE Risk Assessment Caprini VTE Risk Assessment: Moderate/High Risk (score >= 2) Caprini Risk Assessment Model: Point Value = 1 Point Value = 2 Point Value = 3 Point Value = 5 Age 41-60 Minor surgery BMI > 25 kg/m2 Swollen legs Varicose veins or History of unexplained or recurrent spontaneous Oral contraceptives or hormone replacement Sepsis (< 1 month) Serious lung disease, including pneumonia (< 1 month) Abnormal pulmonary function Acute myocardial infarction Congestive heart failure (< 1 month) History of inflammatory bowel disease Medical patient at bed rest Age 61-74 Arthroscopic surgery Major open surgery (> 45 min) Laparoscopic surgery (> 45 min) Malignancy Confined to bed (> 72 hours) Immobilizing plaster cast Central venous access Age >= 75 History of VTE Family history of VTE Factor V Leiden Prothrombin [id number] Lupus anticoagulant Anticardiolipin antibodies Elevated serum homocysteine Heparin-induced thrombocytopenia Other congenital or acquired thrombophilia Stroke (< 1 month) Elective arthroplasty Hip, pelvis, or leg fracture Acute spinal cord injury (< 1 month) Prophylaxis Regimen: Total Risk Factor Score Risk Level Prophylaxis Regimen 0-1 Low Early ambulation 2 Moderate Order ONE of the following: *Sequential Compression Device (SCD) *Heparin 5000 units SQ BID 3-4 Higher Order ONE of the following medications: *Heparin 5000 units SQ TID *Enoxaparin/Lovenox 40 mg SQ daily (WT < 150 kg, CrCl > 30 mL/min) *Enoxaparin/Lovenox 30 mg SQ daily (WT < 150 kg, CrCl > 10-29 mL/min) *Enoxaparin/Lovenox 30 mg SQ BID (WT < 150 kg, CrCl > 30 mL/min) AND/OR *Sequential Compression Device (SCD) 5 or more Highest Order ONE of the following medications: *Heparin 5000 units SQ TID (Preferred with Epidurals) *Enoxaparin/Lovenox 40 mg SQ daily (WT < 150 kg, CrCl > 30 mL/min) *Enoxaparin/Lovenox 30 mg SQ daily (WT < 150 kg, CrCl > 10-29 mL/min) *Enoxaparin/Lovenox 30 mg SQ BID (WT < 150 kg, CrCl > 30 mL/min) AND *Sequential Compression Device (SCD) Assessment and Plan - Plan This is a 51-year-old male with history of coronary artery disease, hypertension presenting with chest pain Chest pain, ST elevated myocardial infarction-serial EKGs were done, second EKG showed ST elevation on left-sided leads, cardiology was consulted, status post cardiac stenting of the LAD and left circumflex artery. Continue aspirin, statin, nitroglycerin,, atenolol Brilinta. Cardiology following, further management per cardiology. Troponin 0 0.08. Chest x-ray unremarkable. Acute renal failure-? Contrast induced, monitor, recheck BMP tomorrow, continue IVF. Chronic pain-continue gabapentin, continue [place] DVT prophylaxis: On Brilinta and aspirin, SCDs for now.
[2017-11-22 09:26] LABS: Baso # (Auto) 0.1 th/mm3 (0.0-0.2); Baso % (Auto) 0.9 % (0.0-2.0); Eos # (Auto) 0.1 th/mm3 (0.0-0.4); Hematocrit 49.3 % (39.0-51.0); Hemoglobin 16.4 gm/dL (13.0-17.0); Lymph # (Auto) 1.5 th/mm3 (1.0-4.8); Lymph % (Auto) 18.4 % (9.0-44.0); Mean Corpuscular HGB Conc 33.2 % (32.0-36.0); Mean Corpuscular Hemoglobin 30.9 pg (27.0-34.0); Mean Corpuscular Volume 93.1 fL (80.0-100.0); Mean Platelet Volume 10.6 fL (7.0-11.0); Mono # (Auto) 0.6 th/mm3 (0.0-0.9); Mono % (Auto) 7.2 % (0.0-8.0); Neut # (Auto) 5.9 th/mm3 (1.8-7.7); Neut % (Auto) 72.5 % (16.0-70.0); Platelet Count 136 th/mm3 (150-450); Red Blood Count 5.29 mil/mm3 (4.50-5.90); Red Cell Distribution Width 13.8 % (11.6-17.2); White Blood Count 8.1 th/mm3 (4.0-11.0)
[2017-11-22 09:45] LABS: Calcium 8.6 mg/dL (8.5-10.1); Carbon Dioxide 25.7 meq/L (21.0-32.0); Potassium 3.5 meq/L (3.5-5.1)
[2017-11-22 09:48] LABS: Chol/HDL Ratio 4.34 Ratio; HDL Cholesterol 37.3 mg/dL (40.0-60.0)
[2017-11-22] MEDS: Sod Chloride 0.9% Inj 1,000 ML IV.CONT SCH ×2 (10:03→18:09)
--- NOTE | 2017-11-22 13:27 | P.PNCA ---
Subjective Interval history: STEMI s/p PCI of LCx and LAD Doing well, no chest pain Mild SOB Physical Exam Vital signs: Vital Signs 11/22/17 01:00 11/22/17 01:05 11/22/17 01:10 Temperature 98.7 F Pulse Rate 63 59 L 58 L Pulse Rate [Bilateral Radial] 63 Respiratory Rate 16 16 16 Blood Pressure 148/91 H 123/90 Blood Pressure [Left Arm] 177/108 H Blood Pressure [Right Arm] 184/111 H Pulse Oximetry 98 98 96 11/22/17 01:16 11/22/17 01:37 11/22/17 01:46 Temperature 98.0 F Pulse Rate 63 58 L 64 Pulse Rate [Bilateral Radial] Respiratory Rate 16 16 Blood Pressure 177/111 H 134/80 Blood Pressure [Left Arm] Blood Pressure [Right Arm] Pulse Oximetry 98 98 97 11/22/17 02:34 11/22/17 02:54 11/22/17 04:00 Temperature Pulse Rate 59 L 67 Pulse Rate [Bilateral Radial] Respiratory Rate 16 Blood Pressure 148/97 H 156/91 H Blood Pressure [Left Arm] Blood Pressure [Right Arm] Pulse Oximetry 94 L 99 11/22/17 04:54 11/22/17 05:39 11/22/17 05:45 Temperature 98.9 F Pulse Rate 73 74 68 Pulse Rate [Bilateral Radial] Respiratory Rate 18 18 18 Blood Pressure 133/85 129/85 127/78 Blood Pressure [Left Arm] Blood Pressure [Right Arm] Pulse Oximetry 94 L 94 L 94 L 11/22/17 06:00 11/22/17 06:16 11/22/17 07:00 Temperature Pulse Rate 64 73 68 Pulse Rate [Bilateral Radial] Respiratory Rate 18 Blood Pressure 137/88 Blood Pressure [Left Arm] Blood Pressure [Right Arm] Pulse Oximetry 99 11/22/17 07:23 11/22/17 08:00 11/22/17 10:00 Temperature 98.5 F Pulse Rate 71 68 78 Pulse Rate [Bilateral Radial] Respiratory Rate 16 16 Blood Pressure 123/88 130/91 H Blood Pressure [Left Arm] Blood Pressure [Right Arm] Pulse Oximetry 98 95 11/22/17 10:15 11/22/17 11:00 11/22/17 12:00 Temperature 98.0 F Pulse Rate 63 65 Pulse Rate [Bilateral Radial] Respiratory Rate 16 Blood Pressure 142/97 H Blood Pressure [Left Arm] Blood Pressure [Right Arm] Pulse Oximetry 99 95 Intake & Output 11/21/17 11/22/17 11/22/17 18:59 06:59 18:59 Intake Total 1250 / 1250 250 / 250 Balance 1250 / 1250 250 / 250 Weight 99 kg Intake: IV 1250 / 1250 250 / 250 Heparin/D5W 25,000 U/250 mL 25, 250 / 250 000 unit In 250 ml @ Per Protocol IV.CONT TITRATE PRN Rx #:[id number] Nitroglycerin Drip Premix 50 mg 250 / 250 In 250 ml @ Per Protocol IV. CONT TITRATE PRN Rx#:[id number] NS Inj 1,000 ML @ Wide Open IV. 1000 / 1000 SIG BOLUS JESUS ALBERTO Rx#:[id number] Narrative: GENERAL: NAD, AAOx3 SKIN: Warm and dry. HEAD: Atraumatic. Normocephalic. EYES: Pupils equal and round. No scleral icterus. No injection or drainage. ENT: No nasal bleeding or discharge. Mucous membranes pink and moist. NECK: Trachea midline. No JVD. CARDIOVASCULAR: Regular rate and rhythm. RESPIRATORY: No accessory muscle use. Clear to auscultation. Breath sounds equal bilaterally. GASTROINTESTINAL: Abdomen soft, non-tender, nondistended. Hepatic and splenic margins not palpable. MUSCULOSKELETAL: Extremities without clubbing, cyanosis, or edema. No obvious deformities. Right radial no hematoma. Right femoral no hematoma, distal pulses intact NEUROLOGICAL: Awake and alert. No obvious cranial nerve deficits. Motor grossly within normal limits. Five out of 5 muscle strength in the arms and legs. Normal speech. PSYCHIATRIC: Appropriate mood and affect; insight and judgment normal. Assessment and Plan - Assessment (1) CAD (coronary artery disease) Code(s): I25.10 - Atherosclerotic heart disease of [place] coronary artery without angina pectoris Status: Acute (2) HTN (hypertension) Code(s): I10 - Essential (primary) hypertension Status: Acute (3) HLD (hyperlipidemia) Code(s): E78.5 - Hyperlipidemia, unspecified Status: Acute (4) Elevated left ventricular end-diastolic pressure (LVEDP) Code(s): R94.30 - Abnormal result of cardiovascular function study, unspecified Status: Acute (5) ST elevation (STEMI) myocardial infarction Code(s): I21.3 - ST elevation (STEMI) myocardial infarction of unspecified site Status: Acute - Plan 1) STEMI/CAD s/p SERENA to LCx and LAD ASA/Brilinta BB/Statin No GLORIA-I at this time with elevated BUN/Cr 2) Mild SOB Elevated LVEDP most likely due to previous ischemia Lasix x1 today 3) 2D echo pending 4) Will consider discharge in 24-48hrs
--- NOTE | 2017-11-22 13:52 | MA ---
cc: Wilver Swann DO DATE: 11/22/2017 PROCEDURE: Left heart catheterization, coronary angiogram, moderate sedation 45 minutes, Bent drug-eluting stent (3 x 22) to the left circumflex, Clem drug-eluting stent (3 x 18) to mid LAD, Angio-Seal femoral arteriotomy. PREOPERATIVE DIAGNOSIS: Acute anterior ST elevation myocardial infarction, chest pain concerning for coronary insufficiency. POSTOPERATIVE DIAGNOSIS: Acute anterior ST elevation myocardial infarction status post Clem drug-eluting stent (3 x 22) to mid left circumflex, Bent drug-eluting stent (3 x 18) to mid LAD. MEDICATIONS: Versed 1 mg, fentanyl 100 mcg, heparin 11,000 units, Brilinta 180 mg, Lasix 20 mg. CONTRAST USED: 150 mL. FLUOROSCOPY TIME: 8.8 minutes. MODERATE SEDATION: 45 minutes. FRAILTY SCORE: 3. ESTIMATED BLOOD LOSS: 10 mL. PROCEDURAL SUMMARY: Darinel Conner is a pleasant 51-year-old male who sees my partner, Dr. Flores, in the office and presented to [facility] due to chest pain. His original EKG looked relatively normal, but he continued to have chest pain and so repeat EKGs were done showing some ST elevation anteriorly. Because of this, as well as the patient's chest pain, he was recommended emergent cardiac catheterization. Risks, benefits and alternatives were explained to him and he consented to such. He was brought to the lab and prepped in the usual sterile fashion. I attempted right radial access due to the patient's chronic back pain and having to lie flat afterwards, but was unable to wire the radial artery and so this was aborted and right femoral artery was accessed using a modified Seldinger technique and placement of a 6-Syriac sheath. This was easily aspirated and flushed. A JR4 was advanced over a J-wire to the ascending aorta and across the aortic valve for measurement of left ventricular pressure. This was pulled back across the aortic valve showing no significant gradient or aortic stenosis. JR4 was used for selective angiography of the right coronary artery system. This was then exchanged out for an EBU4, which was used for selective angiography of the left coronary artery system. Please see intervention below for further notes. FINDINGS: LEFT MAIN: Normal-sized vessel with adequate reflux. It trifurcates into an LAD, circumflex, and ramus. LAD: Moderate size vessel with a patent stent in the proximal portion. Distal to this, there is a 90% lesion in the mid portion of the LAD. Distally, there is no significant disease. He gives off 1 major diagonal, which is overall small vessel with no significant disease. RAMUS: Moderate sized vessel with no significant disease. LEFT CIRCUMFLEX: Moderate size vessel, which has 100% occlusion proximal to the previous stent. Distal portions filling minimally with collaterals. There is some at the occlusion, which may show that this is an acute process. RCA: Moderate size vessel with 50% lesion in the mid portion. Distally, it gives off a PDA as well as a posterolateral branch with no significant disease. LVEDP: 28. INTERVENTION: As the left circumflex appeared to be occluded and possibly acute, I felt that it was reasonable to attempt to intervene on this. The patient was given heparin as an anticoagulant. A BMW wire was advanced easily through the occlusion and into the distal obtuse marginal. A compliant balloon (2 x 15) was then used to dilate the lesion. There appeared to be 2 lesions that needed to be covered with the first one being at the original occlusion and the second one just proximal to the previous stent. An Clem drug-eluting stent (3 x 22) was used to cover both lesions and overlapped the previous stent minimally. This was postdilated with a noncompliant balloon (3 x 15). Final angiogram shows a well-opposed stent with no perforation or dissection and good runoff distally via the major obtuse marginal. At this time, the patient continued to have significant chest pain and so I felt that the LAD needed to be intervened on. BMW wire was then pulled back and directed down the LAD. The patient was also significantly short of breath with a pulse oximetry in the low 90s and so he was given 20 mg of Lasix. An Clem drug-eluting stent (3 x 18) was then placed over the lesion and inflated. A noncompliant balloon (3 x 15) was then used to post-dilate the stent. Final angiogram shows a well-opposed stent with no perforations or dissections. There was minor pinching of the ostium of the diagonal, but there is KELIN 3 flow after nitroglycerin and so no further intervention was felt necessary. Wire was removed. Guidewire was removed. Angio-Seal was used for closure of the femoral arteriotomy. The patient was loaded with 180 mg of Brilinta. He left the laborer bituminous paving cardiovascularly stable. INTERVENTIONAL DATA: 1. Lesion 1, mid left circumflex, lesion length 20, pre-KELIN 0, post-KELIN 3, post-stenosis 0, culprit vessel. 2. Lesion 2, mid LAD, lesion length 16, pre-KELIN 3, post-KELIN 3, post-stenosis 0. IMPRESSION: 1. EKG changes concerning for an acute STEMI. 2. Chest pain concerning for coronary insufficiency. 3. Hypertension. 4. Hyperlipidemia. RECOMMENDATIONS: 1. Darinel Conner underwent PCI as above and will be recommended aspirin and Brilinta therapy. 2. We will continue him on his beta horacio and statin therapy. 3. GLORIA inhibitor therapy will be held at this time due to his kidney disease as well as his recent cardiac catheterization receiving contrast. 4. We will check a 2-D echo to assess overall left ventricular function, cardiac structure, and possible valvulopathies. 5. We will plan on him being in the hospital for 48-72 hours depending on his hospital course. Thank you for allowing me to see Darinel Conner. If there are any questions, please do not hesitate to call. Wilver Swann, DO VGP/sv/do , 10:18 AM , 10:33 AM
--- NOTE | 2017-11-22 15:10 | ECG ---
Date Performed: 11/22/2017 Time Performed: 00:52:49 PTAGE: 51 years EKG: SINUS BRADYCARDIA NONSPECIFIC ST-T CHANGE LATERALLY. ABNORMAL ECG Compared to PREVIOUS TRACING , T-wave changes slightly more prominent in lead I and heart rate is slo wer. PREVIOUS TRACIN07/02/2016 11.01 DOCTOR: Barney Ellis Interpretating Date/Time 11/22/2017 15:09:32
--- NOTE | 2017-11-22 15:10 | ECG ---
Date Performed: 11/22/2017 Time Performed: 10:18:32 PTAGE: 51 years EKG: Sinus rhythm with borderline 1st degree A-V block. Leftward axis Borderline ECG There continues to be some J-poin t elevation in leads V1-V3 which does not have the typical injury appearance, but looks more like ear ly repolarization. The ST segment changes previously seen in leads I and II and AVL have improved con siderably. [place] slightly more leftward than on PREVIOUS TRACING . Overall, this tracing shows improvement in ST-T changes overall, and c ontinues slight J-point elevation that is nonspecific V1-V3. Clinical correlation recommended. PREVIO US TRACIN11/22/2017 02.20 DOCTOR: Barney Ellis Interpretating Date/Time 11/22/2017 15:17:05
--- NOTE | 2017-11-22 15:10 | ECG ---
Date Performed: 11/22/2017 Time Performed: 01:10:25 PTAGE: 51 years EKG: SINUS BRADYCARDIA WITH FIRST DEGREE AV BLOCK NONSPECIFIC T-WAVE ABNORMALITY ABNORMAL ECG Co mpared to PREVIOUS TRACING , CO interval is slightly longer, otherwise no significant change. PREVI OUS TRACIN11/22/[phone] DOCTOR: Barney Ellis Interpretating Date/Time 11/22/2017 15:10:05
--- NOTE | 2017-11-22 15:14 | ECG ---
Date Performed: 11/22/2017 Time Performed: 02:11:25 PTAGE: 51 years EKG: SINUS BRADYCARDIA BORDERLINE FIRST DEGREE AV BLOCK THERE IS J POINT ELEVATION IN LEADS V1 A ND V2, WHICH DOES NOT HAVE THE TYPICAL INJURY PATTERN BUT IS POTENTIALLY ABNORMAL. THERE CONTINUES TO BE SOME SLIGHT ST DEPRESSION IN LEAD I AND AVL, AND SLIGHTLY MORE IN LEAD II. THESE CHANGES ARE NONS PECIFIC BUT INJURY CANNOT BE RULED OUT. CLINICAL CORRELATION AND FOLLOW UP TRACINGS ARE RECOMMENDED. PREVIOUS TRACING : 11/22/2017.10.25 DOCTOR: Barney Ellis Interpretating Date/Time 11/22/2017 15:12:27
--- NOTE | 2017-11-22 15:16 | ECG ---
Date Performed: 11/22/2017 Time Performed: 02:20:46 PTAGE: 51 years EKG: Sinus rhythm THERE IS 1-2 MM OF J POINT ELEVATION IN LEADS V1 AND V2 AND 1 MM IN LEAD III WITH SOME SLIGHT ST-T C HANGES IN LEADS I, II, AND AVL. THESE CHANGES ARE SIMILAR TO SEEN IN PREVIOUS TRACING APPROXIMATELY 9 MINUTES BEFORE. THE CHANGES MAY BE EARLY REPOLARIZATION IN THE PRECORDIAL LEADS AND ARE NONSPECIFIC OVERALL, BUT STILL I CANNOT EXCLUDE INJURY A POSSIBIL ITY. CLINICAL CORRELATION AND FOLLOW UP STRONGLY RECOMMENDED. PREVIOUS TRACIN11/22/2017 02.11 DOCTOR: Barney Ellis Interpretating Date/Time 11/22/2017 15:14:28
[2017-11-22] MEDS ORDERED: LORazepam 0.5 MG Tablet PO PRN (18:26)
[2017-11-22 21:48] VITALS: O2SAT 98
[2017-11-23 04:49] LABS: Calcium 8.6 mg/dL (8.5-10.1); Carbon Dioxide 27.8 meq/L (21.0-32.0); Potassium 3.5 meq/L (3.5-5.1)
[2017-11-23] MEDS: Sod Chloride 0.9% Inj 1,000 ML IV.CONT SCH (05:00)
--- NOTE | 2017-11-23 08:53 | P.PNIM ---
Subjective Interval history: Follow-up for chest pain No chest pain overnight, no nausea or vomiting, no palpitations. Echocardiogram has not been done yet. Would like to go home, he said his dog has not been out for 3 days. Physical Exam Vital signs: Vital Signs 11/22/17 10:00 11/22/17 10:15 11/22/17 11:00 Temperature Pulse Rate 78 63 Respiratory Rate Blood Pressure Pulse Oximetry 99 11/22/17 12:00 11/22/17 13:00 11/22/17 14:00 Temperature 98.0 F Pulse Rate 65 64 73 Respiratory Rate 16 Blood Pressure 142/97 H Pulse Oximetry 95 11/22/17 15:00 11/22/17 16:00 11/22/17 17:00 Temperature 98.1 F Pulse Rate 68 72 71 Respiratory Rate 16 Blood Pressure 120/77 Pulse Oximetry 95 11/22/17 18:00 11/22/17 20:00 11/22/17 21:47 Temperature Pulse Rate 82 Respiratory Rate Blood Pressure 136/94 H Pulse Oximetry 98 Intake & Output 11/22/17 11/23/17 11/23/17 18:59 06:59 18:59 Intake Total 1150 / 1150 Output Total 1700 / 1700 Balance -550 / -550 Intake: IV 250 / 250 Nitroglycerin Drip Premix 50 mg 250 / 250 In 250 ml @ Per Protocol IV. CONT TITRATE PRN Rx#:[id number] Oral 900 / 900 Output: Urine 1700 / 1700 Narrative: GENERAL: Not in acute distress, well-nourished. CARDIOVASCULAR: Regular rate and rhythm without murmurs, gallops, or rubs. RESPIRATORY: Clear to auscultation with normal respiratory effort. GASTROINTESTINAL: Abdomen soft, normal bowel sounds, non-tender, nondistended. Obese. MUSCULOSKELETAL: Extremities without clubbing, cyanosis, or edema. Multiple joint tenderness, baseline. Right femoral pulses 2+, no hematoma. INTEGUMENTARY: Warm and dry, no rash of generalized distribution. NEUROLOGICAL: Awake, alert, oriented 3. No focal neurologic deficits. Results - Labs CBC & Chem 7: 11/22/17 09:12 11/23/17 04:07 Laboratory Results - last 24 hr 11/22/17 11/22/17 11/23/17 09:12 09:12 04:07 WBC 8.1 RBC 5.29 Hgb 16.4 Hct 49.3 MCV 93.1 MCH 30.9 MCHC 33.2 RDW 13.8 Plt Count 136 L MPV 10.6 Neut % (Auto) 72.5 H Lymph % (Auto) 18.4 [place] % (Auto) 7.2 Eos % (Auto) 1.0 Baso % (Auto) 0.9 Neut # (Auto) 5.9 Lymph # (Auto) 1.5 [place] # (Auto) 0.6 Eos # (Auto) 0.1 Baso # (Auto) 0.1 WBC Differential . Differential Comment Auto diff final Sodium 139 137 Potassium 3.5 3.5 Chloride 104 103 Carbon Dioxide 25.7 27.8 Anion Gap 9 6 BUN 13 15 Creatinine 1.35 H 1.34 H Estimated GFR 56 L 56 L Random Glucose 129 H 144 H Calcium 8.6 8.6 Triglycerides 175 H Cholesterol 162 LDL Cholesterol, Calc 90 HDL Cholesterol 37.3 L Cholesterol/HDL Ratio 4.34 Assessment and Plan - Plan This is a 51-year-old male with history of coronary artery disease, hypertension presenting with chest pain Chest pain, ST elevated myocardial infarction-serial EKGs were done, second EKG showed ST elevation on left-sided leads, cardiology was consulted, status post cardiac stenting of the LAD and left circumflex artery with SERENA. Continue aspirin, statin, nitroglycerin, atenolol Brilinta. Cardiology following, further management per cardiology. Chest x-ray unremarkable. No GLORIA inhibitors because of kidney function. Patient insisting to be discharged today and does not want to wait for the echocardiogram to be done. He says he can do it as outpatient. Discussed with Dr. Swann. Brilinta card procurement requested from nursing. Acute renal failure-? Contrast induced, monitor, creatinine improving, down to 1.34, almost back to baseline. Chronic pain-continue gabapentin, continue [place] DVT prophylaxis: On Brilinta and aspirin, SCDs for now.
--- NOTE | 2017-11-23 08:58 | P.DS ---
Date of admission: 11/22/17 02:51 Primary care physician: Jens Valentine MD Brief History from admission: Wrong template. This should be a consultation. Consultation from Dr. Swann from cardiology. We are consulted for medical comanagement. This is a 51-year-old male with history of hypertension, coronary artery disease , dyslipidemia, who has been in his usual state of health until last night around 11 PM after eating when having substernal chest pain, moderate to severe , described as pressure, like an elephant sitting on his chest. He initially thought that this was because of heartburn, without any resolution after an hour , patient decided to go to the emergency department. Chest pain associated with shortness of breath, nausea, lightheadedness but nonradiating. Chest pain lasted about 2-3 hours. A STEMI alert was called, patient went for cardiac catheterization, status post SERENA to LAD and left circumflex artery. Presently, patient is chest pain-free, denies any shortness of breath or palpitations. Of note, patient had a previous heart attack in 2009, status post PCI 2, status post cardiac arrest. Family history: Grandmother had a massive heart attack. DS: Diagnosis - Discharge Diagnosis (1) CAD (coronary artery disease) Status: Acute (2) Elevated left ventricular end-diastolic pressure (LVEDP) Status: Acute (3) ST elevation (STEMI) myocardial infarction Status: Acute DS: Medications - Discharge Medications Prescriptions: ticagrelor [Brilinta] 90 mg PO BID #60 tab DS: Summary Hospital Course: This is a 51-year-old male with history of coronary artery disease, hypertension presenting with chest pain. Upon ED arrival,serial EKGs were done , second EKG showed ST elevation on left-sided leads, cardiology was consulted, status post emergent cardiac stenting of the LAD and left circumflex artery with SERENA. Continue aspirin, statin, nitroglycerin, atenolol Brilint Chest x- ray unremarkable. No GLORIA inhibitors because of kidney function. Patient insisting to be discharged today and does not want to wait for the echocardiogram to be done. He says he can do it as outpatient. Brilinta card procurement requested from nursing to be provided to the patient. Patient also had acute renal failure, could be contrast induced versus dehydration. Improved with volume resuscitation, on discharge, creatinine almost back to baseline. Once cleared by cardiology, patient can be discharged to follow-up with cardiology and primary care physician in a few days. - Time Spent with Patient Total time spent providing and/or coordinating discharge services: Greater than 30 minutes Exam Vital signs: Vital Signs 11/22/17 10:00 11/22/17 10:15 11/22/17 11:00 Temperature Pulse Rate 78 63 Respiratory Rate Blood Pressure Pulse Oximetry 99 11/22/17 12:00 11/22/17 13:00 11/22/17 14:00 Temperature 98.0 F Pulse Rate 65 64 73 Respiratory Rate 16 Blood Pressure 142/97 H Pulse Oximetry 95 11/22/17 15:00 11/22/17 16:00 11/22/17 17:00 Temperature 98.1 F Pulse Rate 68 72 71 Respiratory Rate 16 Blood Pressure 120/77 Pulse Oximetry 95 11/22/17 18:00 11/22/17 20:00 11/22/17 21:47 Temperature Pulse Rate 82 Respiratory Rate Blood Pressure 136/94 H Pulse Oximetry 98 Intake & Output 11/22/17 11/23/17 11/23/17 18:59 06:59 18:59 Intake Total 1150 / 1150 Output Total 1700 / 1700 Balance -550 / -550 Intake: IV 250 / 250 Nitroglycerin Drip Premix 50 mg 250 / 250 In 250 ml @ Per Protocol IV. CONT TITRATE PRN Rx#:[id number] Oral 900 / 900 Output: Urine 1700 / 1700 Results Procedures completed during hospitalization: PCI with SERENA to LAD and LCx. Labs on day of discharge: Labs from last 24 hours 11/23/17 11/22/17 11/22/17 04:07 09:12 09:12 WBC 8.1 RBC 5.29 Hgb 16.4 Hct 49.3 MCV 93.1 MCH 30.9 MCHC 33.2 RDW 13.8 Plt Count 136 L MPV 10.6 Neut % (Auto) 72.5 H Lymph % (Auto) 18.4 [place] % (Auto) 7.2 Eos % (Auto) 1.0 Baso % (Auto) 0.9 Neut # (Auto) 5.9 Lymph # (Auto) 1.5 [place] # (Auto) 0.6 Eos # (Auto) 0.1 Baso # (Auto) 0.1 WBC Differential . Differential Comment Auto diff final Sodium 137 139 Potassium 3.5 3.5 Chloride 103 104 Carbon Dioxide 27.8 25.7 Anion Gap 6 9 BUN 15 13 Creatinine 1.34 H 1.35 H Estimated GFR 56 L 56 L Random Glucose 144 H 129 H Calcium 8.6 8.6 Triglycerides 175 H Cholesterol 162 LDL Cholesterol, Calc 90 HDL Cholesterol 37.3 L Cholesterol/HDL Ratio 4.34 - Impressions ITS Impressions Chest X-Ray 11/22/17 01:05 CONCLUSION: Negative examination. Discharge Plan - Discharge Disposition Patient Disposition: Discharge Home - Discharge Condition Condition: Fair - Discharge Order Discharge Orders: Discharge Order (Routine); Ordered 11/23/17 Ordered By: Nasim Marsh - Discharge Details Anticipated Discharge Date: 11/24/17 Discharge Comment: d/c after seen and cleared by cardiology - Physicians Team Primary Care Provider: Jens Valentine Attending Provider: Nasim Marsh
[2017-11-23] MEDS: Gabapentin 300 MG Capsule PO SCH (09:26)
[2017-11-23] MEDS: Atenolol 25 MG Tablet PO SCH (09:26)
[2017-11-23 09:36] VITALS: RESP 18
[2017-11-23] MEDS ORDERED: Iohexol 350 MG/ML 50 ML Vial (for Cath Lab) IVCONTRAST ONE (10:48)
[2017-11-23] MEDS ORDERED: Iohexol 350 MG/ML 100 ML Vial (for Cath Lab) IVCONTRAST ONE (10:48)
[2017-11-23 10:49] VITALS: BP 134/92; PULSE 78; TEMP 98.5
--- NOTE | 2017-11-23 12:15 | P.PNCA ---
Subjective Interval history: Told by the nurse that Darinel wanted to leave AMA, asked that he wait a few minutes so I could discuss with him about the medications No chest pain/SOB Physical Exam Vital signs: Vital Signs 11/22/17 13:00 11/22/17 14:00 11/22/17 15:00 Temperature Pulse Rate 64 73 68 Respiratory Rate Blood Pressure Pulse Oximetry 11/22/17 16:00 11/22/17 17:00 11/22/17 18:00 Temperature 98.1 F Pulse Rate 72 71 82 Respiratory Rate 16 Blood Pressure 120/77 Pulse Oximetry 95 11/22/17 20:00 11/22/17 21:47 11/23/17 09:00 Temperature 98.5 F Pulse Rate 78 Respiratory Rate 20 Blood Pressure 136/94 H 134/92 H Pulse Oximetry 98 11/23/17 09:33 11/23/17 10:00 Temperature Pulse Rate Respiratory Rate 18 Blood Pressure Pulse Oximetry 98 Intake & Output 11/22/17 11/23/17 11/23/17 18:59 06:59 18:59 Intake Total 1150 / 1150 Output Total 1700 / 1700 Balance -550 / -550 Intake: IV 250 / 250 Nitroglycerin Drip Premix 50 mg 250 / 250 In 250 ml @ Per Protocol IV. CONT TITRATE PRN Rx#:[id number] Oral 900 / 900 Output: Urine 1700 / 1700 Narrative: GENERAL: NAD, AAOx3 SKIN: Warm and dry. HEAD: Atraumatic. Normocephalic. EYES: Pupils equal and round. No scleral icterus. No injection or drainage. ENT: No nasal bleeding or discharge. Mucous membranes pink and moist. NECK: Trachea midline. No JVD. CARDIOVASCULAR: Regular rate and rhythm. RESPIRATORY: No accessory muscle use. Clear to auscultation. Breath sounds equal bilaterally. GASTROINTESTINAL: Abdomen soft, non-tender, nondistended. Hepatic and splenic margins not palpable. MUSCULOSKELETAL: Extremities without clubbing, cyanosis, or edema. No obvious deformities. Right radial no hematoma. NEUROLOGICAL: Awake and alert. No obvious cranial nerve deficits. Motor grossly within normal limits. Five out of 5 muscle strength in the arms and legs. Normal speech. PSYCHIATRIC: Appropriate mood and affect; insight and judgment normal. Assessment and Plan - Assessment (1) CAD (coronary artery disease) Code(s): I25.10 - Atherosclerotic heart disease of [place] coronary artery without angina pectoris Status: Acute (2) HTN (hypertension) Code(s): I10 - Essential (primary) hypertension Status: Acute (3) HLD (hyperlipidemia) Code(s): E78.5 - Hyperlipidemia, unspecified Status: Acute (4) Elevated left ventricular end-diastolic pressure (LVEDP) Code(s): R94.30 - Abnormal result of cardiovascular function study, unspecified Status: Acute (5) ST elevation (STEMI) myocardial infarction Code(s): I21.3 - ST elevation (STEMI) myocardial infarction of unspecified site Status: Acute - Plan 1) STEMI/CAD s/p SERENA to LCx and LAD ASA/Brilinta BB/Statin No GLORIA-I at this time with elevated BUN/Cr 2) Mild SOB resolved Elevated LVEDP most likely due to previous ischemia 3) 2D echo pending 11/23/17 Came down to see the patient before he left AMA to make sure he got a Brilinta card, Brilinta script and instructions on medications. He proceeded to yell at me, telling me that I was "going to hear from his management manager." In asking why, he told me because I made him a "Full Code" for the cardiac catheterization. He said that I never gave him a choice on Code Status, and that that was inappropriate. I explained that I did give him a choice, and that I don't cath DNR patients since some of the things that can happen during the cath can cause the heart to go into an arrhythmia which can stop the heart, and we need to be able to shock him out of it. I explained that he had a choice, Full Code and cath, or DNR and no cath, he chose Full Code and cath. I did explain before the cath that after that cath he may change his Code Status as he wished, if he wanted to change back to DNR status, but during the cath he would need to be Full Code. Then questioned why he was upset over it and how I could help, as the procedure went well, no complications and no cardiac symptoms. He went on to tell me that I took away his choice on code status, and that it better be hospital policy, and he will fight this with his management manager until the end. Risk, benefits and alternatives of leaving AMA were discussed with him. I made sure to place a prescription for Brilinta for a year's worth in his chart and let the nurse know about it. He was visibly taking out his IVs, so asked the nurse to help him. I went on to see another patient down the [place], he made it his goal even though not the direction out, to taveras me down and say into the room "I'll see you soon, with my management manager."
== END 2017-11-23 10:49 | disposition left against medical advice (07) ==
LOC: NEPC 00:46 → NEDA 02:51 → HCPC 04:40
PROVIDERS: ADMIT Hospitalist; ATTEND Hospitalist